=== PATIENT | female | born 1965 | race Caucasian/White ===

== ENCOUNTER 2019-03-14 08:53 | Outpatient (REF) | payer MEDICAID, SELFPAY ==
--- NOTE | 2019-03-14 08:45 | PAPFT_PTH ---
PATIENT: Lauren Mcgraw LOC: [facility] U#:[id number] AGE/SX: 53/F ROOM: RE03/14/[address]: ALEKSEY Gordon : 1965 BED: DIS: 03/14/2019 SPEC #: [id number] RECD: 03/14/19 12:48 STATUS: COCO REJanice #: [id number] ELIESER: 03/14/19 08:[address]: Carol Ortiz DEPT: [facility] Cytology RECD BY: Patricia Montaño ENTERED: 03/14/19 12:49 SP TYPE: PAPFT OTHR DR: Derek Lilly Tissues: 1 - CX/ENDOCX FOR PAP SMEARS Procedures: PAP THIN PREP/UVM Screening HPV DNA PROBE Comments: [id number]
== END 2019-03-14 09:13 ==
LOC: LBN 08:53
PROVIDERS: PCP Internal Medicine; Visit Provider Nurse Practitioner Family
DX: Z12.4 Encounter for screening for malignant neoplasm of cervix (principal); Z11.51 Encounter for screening for human papillomavirus (HPV)
CPT/HCPCS: 88142; 87624

== ENCOUNTER 2019-03-26 01:03 | Outpatient (CLI) | payer MEDICAID, SELFPAY ==
--- NOTE | 2019-03-26 07:30 | DI.MAMMO_ITS ---
SYMPTOMS/DIAGNOSIS: SCREENING MAMMOGRAMS: Mammograms were interpreted according to the usual protocol including computer analysis with CAD system, tomosynthesis and C view imaging. The breast tissue is of moderate radiodensity. There is no dominant mass. There are no suspicious calcifications and there has been no significant interval change when compared with the prior images. SUMMARY: No evidence of malignancy, category 1. Follow-up surveillance with annual screening mammography is recommended. Breast density category C. MQSA ASSESSMENT OF FINDINGS: Negative. Category 1. Patient will receive a letter notifying them of these results. Bi-RADS category C. The breasts are heterogeneously dense, which may obscure small masses.
== END 2019-03-26 01:23 ==
PROVIDERS: PCP Internal Medicine; Visit Provider Nurse Practitioner Family
DX: Z12.31 Encounter for screening mammogram for malignant neoplasm of breast (principal)
CPT/HCPCS: 77063; 77067

== ENCOUNTER 2020-05-20 03:12 | Outpatient (CLI) | payer MEDICAID, SELFPAY ==
--- NOTE | 2020-05-20 07:30 | DI.MAMMO_ITS ---
EXAM: MG MAMMO SCREENING CLINICAL HISTORY: screening TECHNIQUE: Mammograms were interpreted according to the usual protocol including computer analysis w [employer] CAD system, tomosynthesis and C-view imaging. COMPARISON: FINDINGS: The breasts are heterogeneously dense. No dominant mass or clumped microcalcification is identified in either breast. The current examination is compared with previous examinations including April 0422 January 2018 and there has been no gross interval change in appearance in comparison with the prior s tudies. IMPRESSION: No specific evidence of malignancy at this time. Routine screening examinations are suggested at ye aminah intervals due to the family history of breast carcinoma. Category: BI-RADS Cat 1 - Negative Breast Density - Category C - Heterogeneously dense
== END 2020-05-20 03:32 ==
PROVIDERS: PCP Internal Medicine; Visit Provider Nurse Practitioner Family
DX: Z12.31 Encounter for screening mammogram for malignant neoplasm of breast (principal); R92.2 Inconclusive mammogram; Z80.3 Family history of malignant neoplasm of breast
CPT/HCPCS: 77063; 77067

== ENCOUNTER 2020-09-12 13:59 | Emergency (ER) | payer MEDICAID, SELFPAY ==
[2020-09-12 14:05] VITALS: BP 132/86; PULSE 78; RESP 16; TEMP 36.7; O2SAT 99
--- NOTE | 2020-09-12 14:29 | ED.GENADUL_ITS ---
Discharge Plan Disposition Patient Disposition: HOME Condition: Improving Discharge Details Clinical Impression: Epigastric abdominal pain Primary Care Provider: Derek Lilly ED Provider: Janine Cuellar Home Meds and New Rx's Prescriptions: New sucralfate [Carafate] 1 gram tablet 1 gm PO QACHS Qty: 14 RF: 0 Continued estradiol-norethindrone acet [Activella] 1-0.5 mg tablet 1 tab PO DAILY Qty: 84 RF: 3 multivitamin [Daily Multi-Vitamin] 1 EACH tablet 1 ea PO DAILY RF: 0 aspirin [Aspirin Low-Strength] 81 MG tablet,chewable 81 mg PO DAILY RF: 0 omega-3 fatty acids-fish oil 1 EACH capsule 1 ea PO DAILY Qty: 2 RF: 0 amitriptyline 25 MG tablet 50 mg PO HS RF: 0 Discharge Instructions Instructions: Peptic Ulcer (ED), Gastritis (ED), Epigastric Pain (ED) Additional Instructions: Stop taking NSAIDs for your shoulder pain. Take Tylenol every 4 hours as needed and directed for pain. Take over the counter Prilosec once daily for the next 2 weeks. Take the carafate as directed. Avoid alcohol, caffeine, spicy foods, chocolate and peppermint as this may contribute to heartburn. You will receive a call from care management regarding a follow-up appointment with general surgery for further evaluation and for consideration for upper endoscopy if your symptoms do not improve or worsen. Follow up with your primary care doctor for an ultrasound of your thyroid for further evaluation of your thyroid nodule. Return immediately to the emergency department if you develop any worsening or new concerning symptoms. Referrals: Candis Mendieta MD [ [facility] STAFF PHYSICIAN] - Discharge Data Discharge Physician: Janine Cuellar Medical Decision Making 55-year-old female with a history of anxiety presents for sudden onset of sharp epigastric pain that started while standing in her kitchen today. EKG notes a rate of 80, sinus with no acute ST ischemic findings, nondiagnostic. She appears uncomfortable. Her vitals are within normal limits. Her lungs are clear. Her abdomen is mild to moderately tender in the epigastrium. She has been taking Motrin regularly for shoulder pain. Suspect likely PUD, gastritis, esophagitis. Also consider pancreatitis, cholelithiasis. Considering age and presentation, will obtain a cardiac work-up CTA chest and abdomen, give GI cocktail, Pepcid and morphine. Labs and imaging reviewed and unremarkable. Normal white blood cell count. Troponin negative. There is incidentally a 1.5 cm right lobe thyroid nodule. Patient reassessed and she feels much better. Discussed with patient that it is recommended she hold on NSAIDs at this time and treat her shoulder pain with Tylenol. She was advised to take a PPI for the next 2 weeks and given a dose of Carafate here as well as prescription for home. She was placed on surgery follow-up list for reevaluation. Imaging Data Radiologic Study: Radiologist's impression: CT Angiography Chest With Contrast Exam date and time: 09/12/2020 3:34 PM Age: 55 years old Clinical indication: Other: Epigastric pain; Abdominal pain; Acute TECHNIQUE: Imaging protocol: Computed tomographic angiography of the chest with intravenous contrast. 3D rendering (Not supervised by radiologist): MIP and/or 3D reconstructed images were created by the technologist. Contrast material: OMNIPAQUE 350; Contrast volume: 100 ml; Contrast route: INTRAVENOUS (IV); Other contrast: Catheter; COMPARISON: No relevant prior studies available. FINDINGS: Pulmonary arteries: There is no filling defect to suggest pulmonary embolism. There is no aortic dissection. Aorta: See Pulmonary arteries finding. Thyroid: There is a 1.5 cm hypodense nodule in the partially visualized right lobe of thyroid gland. Lungs: Unremarkable. No consolidation. No masses. Pleural space: There is no focal consolidation or pleural effusion. Heart: Heart is within normal limits in size. Lymph nodes: Unremarkable. No enlarged lymph nodes. Bones/joints: There are degenerative changes in the thoracic spine. There is no focal lytic or blastic lesion. Soft tissues: Unremarkable. IMPRESSION: 1. No pulmonary embolism or aortic dissection. 2. No acute pulmonary process. 3. 1.5 cm nodule in right lobe of the thyroid gland. Correlation with ultrasound might be considered. CT Angiography Abdomen and Pelvis With Contrast Exam date and time: 09/12/2020 3:34 PM Age: 55 years old Clinical indication: Other: Epigastric pain; Abdominal pain; Acute TECHNIQUE: Imaging protocol: Computed tomographic angiography of the abdomen and pelvis with intravenous contrast material. 3D rendering (Not supervised by radiologist): MIP and/or 3D reconstructed images were created by the technologist. Contrast material: OMNIPAQUE 350; Contrast volume: 100 ml; Contrast route: INTRAVENOUS (IV); Other contrast: Catheter; COMPARISON: No relevant prior studies available. FINDINGS: Aorta: No aortic aneurysm. No aortic dissection. Celiac trunk and mesenteric arteries: No occlusion or significant stenosis. Renal arteries: No occlusion or significant stenosis. Right iliac arteries: No occlusion or significant stenosis. Left iliac arteries: No occlusion or significant stenosis. Liver: No mass. Gallbladder and bile ducts: Unremarkable. No calcified stones. No ductal dilation. Pancreas: Unremarkable. No mass. No ductal dilation. Spleen: Unremarkable. No splenomegaly. Adrenals: Unremarkable. No mass. Kidneys and ureters: There is a cortical cyst in the right kidney. Stomach and bowel: There is mild stool volume in the colon and rectum. Appendix is normal (image 93 series 4). Stomach is nondistended, limiting the evaluation of mucosal thickening. Appendix: See Stomach and bowel finding. Intraperitoneal space: Unremarkable. No free air. No significant fluid collection. Lymph nodes: Unremarkable. No enlarged lymph nodes. Urinary bladder: Unremarkable. No mass. Reproductive: Uterus is enhancing intravenously which is non-specific. There are surgical clips noted in the bilateral adnexa. In Bones/joints: There are degenerative changes in the lumbar spine, most pronounced at L4-L5 and L5-S1. Soft tissues: There is a small fat containing umbilical hernia. IMPRESSION: 1. No acute intra-abdominal abnormality. 2. Normal appendix. No definite CT abnormality to suggest pancreatitis or cholecystitis. Lab Data Lab results reviewed: Yes I reviewed the patient's lab results. ECG Data Attestation: I personally reviewed and interpreted this ECG (s) as follows: Interpretation: HPI General Mode of arrival: ambulatory . Date/Time Provider Initiated Documentation: 09/12/20 14:11 . Limitations to Documentation: no limitations . Information obtained by: patient . HPI Narrative: Patient is a 55-year-old female who presents with sudden sharp and stabbing epigastric pain that started while standing in her kitchen today. Patient states she had toast and coffee 2 hours prior to onset of her symptoms. She states the pain is constant and currently 8/10. She has not taken medication for symptoms. She denies any known aggravating or alleviating factors. She denies any radiation to her chest or back. She had a normal bowel movement this morning without rectal bleeding. She states she has been taking 600 mg of ibuprofen 3 times daily for the past 1 to 2 weeks for right shoulder pain. She denies any fever, cough, chest pain, shortness of breath, nausea, vomiting, diarrhea, urinary symptoms. She denies any recent travel, recent known sick contacts or recent known exposure to coronavirus. Related Data Home Medications Medication Instructions Recorded Confirmed aspirin [Aspirin Low-Strength] 81 mg PO DAILY tab-cap 08/13/13 09/12/20 multivitamin [Daily Multi-Vitamin] 1 ea PO DAILY 08/13/13 09/12/20 omega-3 fatty acids-fish oil 1 ea PO DAILY #2 08/13/13 09/12/20 amitriptyline 50 mg PO HS tab-cap 08/25/14 09/12/20 estradiol-norethindrone acet 1 1 tab PO DAILY #84 tab 04/24/20 09/12/20 mg-0.5 mg tablet sucralfate [Carafate] 1 gm PO QACHS #14 tab 09/12/20 Previous Rx's Medication Instructions Recorded estradiol-norethindrone acet 1 1 tab PO DAILY #84 tab 04/24/20 mg-0.5 mg tablet sucralfate [Carafate] 1 gm PO QACHS #14 tab 09/12/20 Allergies Allergy/AdvReac Type Severity Reaction Status Date / Time sulfamethoxazole Allergy Intermediate RASH Verified 09/12/20 14:09 [From Bactrim] trimethoprim [From Bactrim] Allergy Intermediate RASH Verified 09/12/20 14:09 General Stated Complaint: Abd Prob GEGE: 3 Review of Systems All systems reviewed & are unremarkable except as noted in HPI and below Constitutional Constitutional: Reports as per HPI, Denies chills and Denies fever(s) Eyes Eyes: Denies blurry vision ENT Ears, Nose, Mouth, and Throat: Denies dizziness, Denies sore throat and Denies throat swelling Cardiovascular Cardiovascular: Denies chest pain and Denies dyspnea Respiratory Respiratory: Denies cough and Denies dyspnea Gastrointestinal Gastrointestinal: Reports abdominal pain, Denies diarrhea and Denies vomiting Genitourinary Genitourinary: Denies hematuria and Denies dysuria Musculoskeletal Musculoskeletal: Denies back pain and Denies numbness Integumentary/Breasts Skin/Breast: Denies lesions and Denies rash Neurologic Neurologic: Denies dizziness, Denies localized weakness and Denies numbness Allergic/Immunologic Allergic/Immunologic: Denies throat swelling [facility] Medical History (Updated 09/12/20 @ 18:02 by Janine Cuellar DO) Anxiety (08/13/13) Chronic neck pain (08/13/13) Surgical History (Updated 08/01/18 @ 14:34 by [employer] [place]) Cautery of R neck nerves 2012 x 2 procedures Ligation of fallopian tube 1997 Family History Sister Manda-Danlos syndrome Sister Manda-Danlos syndrome Mother Hyperlipidemia Sister Manda-Danlos syndrome Other Diabetes Personal history of malignant neoplasm Social History Smoking/Tobacco Use Status: Former Tobacco Use Smoking risk assessment performed?: Yes Alcohol Intake: current Alcohol Intake frequency: 0-2 drinks per day Alcohol type: wine Drug use: Never Substance use type: does not use Do you feel safe at home: No Do you feel safe in your relationship?: No History History 4 Para 2 Hx # Term Pregnancies Multiple births Hx # Pregnancies Ectopic pregnancies AB induced Hx Number of Living Children AB spontaneous Exam Const General: cooperative, healthy appearing and uncomfortable Orientation: alert, awake and oriented x3 HENMT Head: normal to inspection Face and sinus: normal facial exam Eyes General: appearance normal, both eyes and all related structures Pupils: PERRL EOM: EOM intact bilaterally Neck Neck: normal visual inspection and No submandibular swelling Lymphatic: no lymphadenopathy noted Chest Chest: normal inspection of the chest and no tenderness Resp Effort & Inspection: normal respiratory effort and able to speak in complete sentences Auscultation: clear to auscultation bilaterally Cardio Rate: regular rate Rhythm: regular rhythm GI Inspection: normal to inspection Palpation: soft, not firm, not rigid and tender in the epigastrum Auscultation: hypoactive bowel sounds Skin General skin exam: no rashes or lesions noted Neuro General: patient alert, patient awake and patient oriented x3 Cognition: normal cognition Speech: speech normal Motor: muscle tone normal throughout Sensory Exam: no sensory deficits noted Extrem General: normal to inspection, full ROM, capillary refill normal, no calf tenderness bilaterally and no edema Psych Appearance: grossly normal Mental Status: mental status grossly normal Speech and Movement: speech and movement normal Affect: normal affect Course Vital Signs Vital signs: Vital Signs Temperature 98.1 F 09/12/20 14:05 Pulse 78 09/12/20 14:05 Respiratory Rate 16 09/12/20 14:05 Blood Pressure 132/86 09/12/20 14:05 Pulse Oximetry 99 09/12/20 14:05 Temperature 98.1 F 09/12/20 14:05 Temperature Source Skin 09/12/20 14:05 Pulse 78 09/12/20 14:05 Respiratory Rate 16 09/12/20 14:05 Respiratory Effort 09/12/20 14:09 Blood Pressure 132/86 09/12/20 14:05 Blood Pressure Position Sitting 09/12/20 14:05 Pulse Oximetry 99 09/12/20 14:05 Oxygen Delivery Method Room Air 09/12/20 14:05 Oxygen Flow Rate 0 09/12/20 14:05 Pain Level 8 09/12/20 14:05
[2020-09-12 14:38] LABS: Abs Immature Grans 0.02 10^3/uL (0.0-0.06); Absolute Basophil Count 0.04 10^3/uL (0.0-0.2); Absolute Eosinophil Count 0.35 10^3/uL (0.0-0.7); Absolute Lymphocyte Count 2.03 10^3/uL (1.2-3.4); Absolute Monocyte Count 0.64 10^3/uL (0.1-0.8); Absolute Neutrophil Count 5.84 10^3/uL (1.2-6.7); Basophils % 0.4; Eosinophils % 3.9; HCT 39.3 % (36.0-46.0); Immature Grans % 0.2; Lymphocytes % 22.8; MCH 31.5 pg (27.0-33.0); MCHC 33.1 % (32.0-36.0); MCV 95.2 fL (80-95); Monocytes % 7.2; Neutrophils % 65.5; Nucleated RBC 0 %; Platelet Count 289 10^3/uL (130-400); RBC 4.13 10^6/uL (3.93-5.22); RDW 12.6 % (11.7-14.6); RDW-SD 43.7 fL; WBC 8.92 10^3/uL (4.4-10.8)
[2020-09-12 14:54] LABS: ALT 22 U/L (14-59); AST 16 U/L (15-37); Albumin 4.1 g/dL (3.4-5.0); Alkaline Phosphatase 55 U/L (46-116); Anion Gap 6.9 mmol/L (3-11); BUN 11 mg/dL (7-18); Bilirubin, Total 0.2 mg/dL (0.2-1.0); CO2 28.1 mmol/L (21.0-32.0); CREATININE 0.88 mg/dL (0.55-1.02); Calcium 9.3 mg/dL (8.5-10.1); Chloride 105 mmol/L (98-107); Glucose 94 mg/dL (74-106); Lipase 148 U/L (73-393); Sodium 140 mmol/L (136-145); Total Protein 6.7 g/dL (6.4-8.2)
[2020-09-12 14:56] LABS: Troponin I < 0.05 ng/mL (<0.06)
[2020-09-12 15:02] LABS: Bilirubin Negative (Negative); Blood Negative (Negative); Clarity Clear (Clear); Glucose Negative (Negative); Ketones Negative (Negative); Leukocyte Esterase Negative (Negative); Nitrite Negative (Negative); Urobilinogen 0.2 EU/dL (Up TO 0.2); pH 7.5 (5-8)
--- NOTE | 2020-09-12 15:30 | DI.CT_ITS ---
EXAM: CT THORAX ABD/PEL CTA CLINICAL HISTORY: epigastric abd pain, sudden. TECHNIQUE: Imaging Protocol: Axial computed tomography images of the with coronal and sagittal refo rmatted images were created and reviewed CONTRAST MATERIAL: Intravenous: Omnipaque 350 Contrast volume:100 cc contrast route:IV - Oral: No COMPARISON: No exams were available for comparison FINDINGS: CHEST: Pulmonary arteries: No obvious intraluminal filling defects to suggest the presence of acute pulmonar y emboli. Lungs: No evidence of infiltrates nor pleural effusions. No evidence of pulmonary infarction. No si gnificant focal findings in trachea and mainstem bronchi. Mediastinum: No hilar nor mediastinal adenopathy. No obvious axillary adenopathy. Right thyroid lob e partially included contains prominent nodule. Cardiac: Heart size is normal. There is no pericardial effusion. The diameter of the ascending thor acic aorta is prominent, measuring 4 centimetres. There is no a aortic dissection evident. Osseous: No fractures identified. No lytic osseous lesions seen. ABDOMEN: There is no ascites Abdominal aorta: Intact. No evidence of aortic aneurysm. No significant stenosis at the origin of t he celiac and SMA arteries nor of the renal arteries. Inferior mesenteric artery is patent. No evid ence of significant stenosis within the abdominal aorta and aortic bifurcation nor within the aortoil iac segments. Both common femoral arteries are also patent. Abdomen: No focal hepatic findings no dilatation of intrahepatic ducts. There is no obvious gallblad chasity pathology. The CBD is not dilated. The pancreas appears unremarkable. The spleen is not enlarg ed. There are no significant adrenal masses nor significant focal findings in the left kidney. Ther e is a small 12 millimeter cyst in the right kidney. No calculi nor solid renal masses. No hydronep hrosis. No perinephric fluid. The abdominal aorta is not enlarged. There is no flqszqguwmqcele-plcn-bsduqi adenopathy. There is no evidence of anterior abdominal wall hernia, bowel obstruction, nor free air. PELVIS: The uterus and adnexal regions appear unremarkable. Tubal ligation clips noted both adnexal regions. Urinary bladder appears unremarkable. No fluid in the cul-de-sac. There is no intrapelvic nor ing uinal adenopathy evident. There is no evidence of acute appendicitis or diverticulitis. There are n o pelvic fractures. No lytic osseous lesions. IMPRESSION: 1. No evidence of acute pulmonary embolism nor evidence of pulmonary infarction or pleural effusions. 2. No evidence of aortic dissection. No pericardial effusion. 3. No acute intra-abdominal pathology. 4. Small benign cyst noted in the right kidney. No other significant renal findings. No hydronephro sis. RADIATION DOSE DELIVERED: LINK-TO-SR Total DLP DATA REPOSITORY: All CT scans at this facility are submitted to the National Radiology Data Registry (NRDR) Dose Index Registry (DIR) with the [employer] (ACR). RADIATION OPTIMIZATION: All CT scans at this facility use at least one of these dose optimization te chniques: automated exposure control; mA and/or kV adjustment per patient size (includes targeted exa ms where dose is matched to clinical indication); or iterative reconstruction.
--- NOTE | 2020-09-12 15:30 | RT.EKG_ITS ---
APPROVED REPORT Exam: Resting ECG Patient Location: E HR:80 bpm ECG Measurements Heart Rate 80 AXIS UT 147 P 20 QRSd 115 QRS 97 QT 405 T 45 QTc 446 Conclusion Sinus rhythm...normal P axis, V-rate 60- 99 Ventricular premature complex...V complex w/ short R-R interval Nonspecific intraventricular conduction delay...QRSd >115mS, not LBBB/RBBB I have reviewed and interpreted ECG and agree with software generated interpretation.
[2020-09-12] MEDS: Normal Saline 1,000 ML 1000 ML IV (15:45)
[2020-09-12] MEDS: Omnipaque 350 MG/ML 100 ML BTL IJ (16:10)
[2020-09-12] MEDS: Normal Saline - Diluent 50 ML VIAL IV (16:10)
[2020-09-12] MEDS: FAMOTIDINE 20 MG/50 ML BAG 200 MG IVPB (16:10)
[2020-09-12] MEDS: Normal Saline Flush 10 ML SYR IVP (16:10)
--- NOTE | 2020-09-12 17:18 | DI.VRAD_ITS ---
PROCEDURE INFORMATION: Exam: CT Angiography Chest With Contrast Exam date and time: 09/12/2020 3:34 PM Age: 55 years old Clinical indication: Other: Epigastric pain; Abdominal pain; Acute TECHNIQUE: Imaging protocol: Computed tomographic angiography of the chest with intravenous contrast. 3D rendering (Not supervised by radiologist): MIP and/or 3D reconstructed images were created by the technologist. Contrast material: OMNIPAQUE 350; Contrast volume: 100 ml; Contrast route: INTRAVENOUS (IV); Other contrast: Catheter; COMPARISON: No relevant prior studies available. FINDINGS: Pulmonary arteries: There is no filling defect to suggest pulmonary embolism. There is no aortic dissection. Aorta: See Pulmonary arteries finding. Thyroid: There is a 1.5 cm hypodense nodule in the partially visualized right lobe of thyroid gland. Lungs: Unremarkable. No consolidation. No masses. Pleural space: There is no focal consolidation or pleural effusion. Heart: Heart is within normal limits in size. Lymph nodes: Unremarkable. No enlarged lymph nodes. Bones/joints: There are degenerative changes in the thoracic spine. There is no focal lytic or blastic lesion. Soft tissues: Unremarkable. IMPRESSION: 1. No pulmonary embolism or aortic dissection. 2. No acute pulmonary process. 3. 1.5 cm nodule in right lobe of the thyroid gland. Correlation with ultrasound might be considered. PROCEDURE INFORMATION: Exam: CT Angiography Abdomen and Pelvis With Contrast Exam date and time: 09/12/2020 3:34 PM Age: 55 years old Clinical indication: Other: Epigastric pain; Abdominal pain; Acute TECHNIQUE: Imaging protocol: Computed tomographic angiography of the abdomen and pelvis with intravenous contrast material. 3D rendering (Not supervised by radiologist): MIP and/or 3D reconstructed images were created by the technologist. Contrast material: OMNIPAQUE 350; Contrast volume: 100 ml; Contrast route: INTRAVENOUS (IV); Other contrast: Catheter; COMPARISON: No relevant prior studies available. FINDINGS: Aorta: No aortic aneurysm. No aortic dissection. Celiac trunk and mesenteric arteries: No occlusion or significant stenosis. Renal arteries: No occlusion or significant stenosis. Right iliac arteries: No occlusion or significant stenosis. Left iliac arteries: No occlusion or significant stenosis. Liver: No mass. Gallbladder and bile ducts: Unremarkable. No calcified stones. No ductal dilation. Pancreas: Unremarkable. No mass. No ductal dilation. Spleen: Unremarkable. No splenomegaly. Adrenals: Unremarkable. No mass. Kidneys and ureters: There is a cortical cyst in the right kidney. Stomach and bowel: There is mild stool volume in the colon and rectum. Appendix is normal (image 93 series 4). Stomach is nondistended, limiting the evaluation of mucosal thickening. Appendix: See Stomach and bowel finding. Intraperitoneal space: Unremarkable. No free air. No significant fluid collection. Lymph nodes: Unremarkable. No enlarged lymph nodes. Urinary bladder: Unremarkable. No mass. Reproductive: Uterus is enhancing intravenously which is non-specific. There are surgical clips noted in the bilateral adnexa. In Bones/joints: There are degenerative changes in the lumbar spine, most pronounced at L4-L5 and L5-S1. Soft tissues: There is a small fat containing umbilical hernia. IMPRESSION: 1. No acute intra-abdominal abnormality. 2. Normal appendix. No definite CT abnormality to suggest pancreatitis or cholecystitis. Dictated and Authenticated by: Kalia Stokes MD. Ordering:RENE Mehta MD
[2020-09-12] MEDS: Sucralfate 1 GM TAB (17:50)
[2020-09-12 18:20] VITALS: BP 116/72; PULSE 69; RESP 16; TEMP 36.7; O2SAT 98
--- NOTE | 2020-09-13 07:35 | NUR.NOTE ---
Nursing Note: Referral faxed to [facility] for follow up. Nettie Cisneros
== END 2020-09-12 18:30 | disposition home or self-care (01) ==
PROVIDERS: Emergency Provider Physician Assistant; PCP Internal Medicine
DX: R10.13 Epigastric pain (principal); F41.9 Anxiety disorder, unspecified; Z79.1 Long term (current) use of non-steroidal anti-inflammatories (NSAID)
CPT/HCPCS: 36415; 71275; 74177; 80053; 83690; 93005; 96361; 96365; 96375; 99285; 81003; 83735; 84484; 85025; 93010; J3490

== ENCOUNTER 2020-09-14 21:22 | Outpatient (REF) | payer MEDICAID, SELFPAY ==
[2020-09-14 21:36] LABS: FREE T4 0.82 ng/dL (0.76-1.46); TSH 2.68 uIU/mL (0.36-3.74)
[2020-09-15 17:02] LABS: T3,Free 2.5 pg/mL (2.8-5.3)
== END 2020-09-14 21:42 ==
LOC: NCHCN 21:22
PROVIDERS: PCP Internal Medicine; Visit Provider Nurse Practitioner Family
DX: E04.1 Nontoxic single thyroid nodule (principal)
CPT/HCPCS: 84439; 84443; 84481

== ENCOUNTER 2020-09-22 02:27 | Outpatient (CLI) | payer MEDICAID, SELFPAY ==
--- NOTE | 2020-09-22 | DI.US_ITS ---
EXAM: US THYROID CLINICAL HISTORY: RT THYROID NODULE, E04.1 TECHNIQUE: Ultrasound performed using standard protocol. COMPARISON: US LEFT BREAST ULTRASOUND from 02/28/2014 FINDINGS: Thyroid ultrasound was performed according to the usual protocol. Right thyroid lobe measures 50 x 1 7 x 18 millimeters. Left thyroid lobe measures 30 x 10 x 13 millimeters. Isthmus is about 3 millime ters in thickness. Thyroid parenchyma is predominantly homogeneous. There is a dominant 25 millimeter in diameter nodul e with spondylo form appearance which is wider than tall and has smooth margins and no echogenic foci in the lower pole of the right thyroid lobe. This is TI-RADS level TR 1, no follow-up recommended. A couple of subcentimeter nodules are also seen in the right thyroid lobe which are smooth walled iso echoic with no calcifications, no follow up recommended for these small lesions. IMPRESSION: No suspicious lesion identified, no follow up recommended. DATA REPOSITORY:
== END 2020-09-22 02:47 ==
PROVIDERS: PCP Internal Medicine; Visit Provider Nurse Practitioner Family
DX: E04.1 Nontoxic single thyroid nodule (principal)
CPT/HCPCS: 76536

== ENCOUNTER 2020-10-02 03:58 | Outpatient (CLI) | payer MEDICAID, SELFPAY ==
--- NOTE | 2020-10-02 08:05 | DI.RAD_ITS ---
EXAM: XR SHOULDER RT COMPLETE 2+V CLINICAL HISTORY: RT SHOULDER PAIN,[id number]. TECHNIQUE: 2D digital imaging was performed. COMPARISON: No exams were available for comparison FINDINGS: BONES: No acute fracture is present. No bony destructive lesion is seen. JOINTS: No dislocation present. Degenerative changes are seen at the acromioclavicular joint. SOFT TISSUE: Normal. IMPRESSION: Mild degenerative changes of the AC joint. DATA REPOSITORY: RADIATION DOSE DELIVERED:
== END 2020-10-02 04:18 ==
PROVIDERS: PCP Internal Medicine; Visit Provider Family Medicine
DX: M19.011 Primary osteoarthritis, right shoulder (principal)
CPT/HCPCS: 73030

== ENCOUNTER 2020-11-05 10:03 | Outpatient (CLI) | payer MEDICAID, SELFPAY ==
--- NOTE | 2020-11-05 09:15 | DI.RAD_ITS ---
EXAM: XR SHOULDER RT COMPLETE 2+V CLINICAL HISTORY: right shoulder injury. TECHNIQUE: 2D digital imaging was performed. COMPARISON: CR XR SHOULDER RT COMPLETE 2+V from 10/02/2020 FINDINGS: BONES: No acute fracture is present. No bony destructive lesion is seen. JOINTS: No dislocation present. Mild degenerative changes are seen at the acromioclavicular joint. T he glenohumeral joint is unremarkable. SOFT TISSUE: Normal. IMPRESSION: Mild degenerative changes of the right AC joint. DATA REPOSITORY: RADIATION DOSE DELIVERED:
== END 2020-11-05 10:23 ==
PROVIDERS: PCP Internal Medicine; Referring Provider Internal Medicine; Visit Provider Student in an Organized Health Care Education/Training Program
DX: M19.011 Primary osteoarthritis, right shoulder (principal)
CPT/HCPCS: 73030

== ENCOUNTER 2021-06-08 03:14 | Outpatient (CLI) | payer MEDICAID, SELFPAY ==
--- NOTE | 2021-06-08 08:45 | DI.MAMMO_ITS ---
Exam(s) MAMMO SCREENING EXAM: MAMMO SCREENING CLINICAL HISTORY: screening Z12.39 TECHNIQUE: Mammograms were interpreted according to the usual protocol including computer analysis w [employer] CAD system, tomosynthesis and C-view imaging. COMPARISON: 2010 through 2019 FINDINGS: The breasts are composed of heterogeneously dense fibroglandular densities, Breast Density category C . No suspicious masses or suspicious microcalcifications are seen. No skin thickening or abnormal axillary lymph nodes are seen. There has been no significant change from prior exams. IMPRESSION: BI-RADS Category 1, Negative mammogram. Yearly screening mammography is recommended. Breast Density Category C, heterogeneously Dense. The mammogram demonstrates the patient's breast tissue is dense. Dense breast tissue is very common a nd is not abnormal but dense breast tissue can make it harder to find cancer on a mammogram. Also, de nse breast tissue may increase breast cancer risk. This information about the result of the mammogram report was provided to the patient to raise their awareness. Use this report when you speak with the patient about their risks for breast cancer, which includes their family history. At that time, you may recommend additional screening tests (Ultrasound or MRI) as they might be useful based on their r isk. A negative radiographic report should not delay biopsy if a dominant or clinically suspicious mass is present. Up to ten percent of cancers are not identified on mammography. A negative report may reinforce clinical impression. Adenosis and dense breasts may obscure an underlying neoplasm. False positive reports average 6 to 10%.
== END 2021-06-08 03:34 ==
PROVIDERS: PCP Internal Medicine; Visit Provider Nurse Practitioner Family
DX: Z12.31 Encounter for screening mammogram for malignant neoplasm of breast (principal)
CPT/HCPCS: 77063; 77067

== ENCOUNTER 2021-07-23 03:47 | Outpatient (CLI) | payer MEDICAID, SELFPAY ==
--- NOTE | 2021-07-23 15:32 | DI.MRI_ITS ---
Exam(s) MR UPPER JOINT RT WO CLINICAL HISTORY: PAIN,IMPINGEMENT SYNDROME,SLAP LESION,TENDINITIS,M75.41,M75.21,M25.511. TECHNIQUE: Multiplanar multisequence MRI was performed. COMPARISON: None FINDINGS: MR examination of the shoulder was performed according to the usual protocol. There is a moderate-sized effusion of the glenohumeral joint. Bones and labrum: There is mild hypertrophic change the. Some degenerative spurring the glenoid appe ars to be present as well. There are few small subchondral cysts the humeral head. There is an apparent labral tear in its anterior and superior portions. Labrum is not ideally visual ized due to motion artifact on multiple pulse sequences. Rotator cuff: There is a full-thickness retracted rotator cuff tear which involves the posterior 3/4 of the supraspinatus tendon as well as some small anterior portions of infraspinatus tendon. There is retraction by about 4 cm and the width of the tendon gap is about 3.3 cm. There is muscular atrop hy the supraspinatus estimated at about 50 percent. No other significant muscular atrophy seen. The subscapularis tendon appears fairly well maintained with some tendinosis of the distal portion of th e tendon. There is tendinosis of the on torn portions of distal infraspinatus tendon.. Rotator interval is not well demonstrated on the images obtained. There does appear to be a signific ant rotator interval tear. Biceps tendon and anchor: Biceps tendon is normally positioned in the bicipital groove. There may be some fraying of the biceps anchor which shows abnormal signal. No full-thickness or retracted tear is seen. IMPRESSION: Large rotator cuff retracted tear involving predominant portions of the supraspinatus tendon and ante rior portions of infraspinatus tendon. Labral tear/deficiency, particularly in anterior superior por tion of the labrum. Rotator interval tear noted as well. DATA REPOSITORY:
== END 2021-07-23 04:07 ==
PROVIDERS: PCP Internal Medicine; Visit Provider Student in an Organized Health Care Education/Training Program
DX: M25.511 Pain in right shoulder (principal); S43.431A Superior glenoid labrum lesion of right shoulder, initial encounter; S46.011A Strain of muscle(s) and tendon(s) of the rotator cuff of right shoulder, initial encounter
CPT/HCPCS: 73221

== ENCOUNTER 2021-08-09 02:00 | Outpatient (CLI) | payer MEDICAID, SELFPAY ==
[2021-08-09 11:16] LABS: Source Nasal/Nares
[2021-08-09 14:48] LABS: COVID-19 PCR Negative (Negative)
== END 2021-08-09 02:01 | disposition home or self-care (01) ==
LOC: LBO 02:00
PROVIDERS: PCP Internal Medicine; Visit Provider Student in an Organized Health Care Education/Training Program
DX: Z20.822 Contact with and (suspected) exposure to COVID-19 (principal); Z01.818 Encounter for other preprocedural examination
CPT/HCPCS: 87635

== ENCOUNTER 2021-08-11 12:21 | Day surgery (SDC) | payer MEDICAID, SELFPAY ==
--- NOTE | 2021-08-11 10:41 | PDOC.DSDIS_ITS ---
Discharge Plan Disposition Patient Disposition: HOME Condition: Good Discharge Details Reason For Visit: Right RTC/biceps tendinitis; impingement; SLAP Attending Provider: Levi Bajwa Primary Care Provider: Derek Lilly [place] Meds and New Rx's Prescriptions: New acetaminophen 500 mg tablet 500 mg PO Q6H PRN (Reason: pain) Qty: 60 RF: 2 ibuprofen 600 mg tablet 600 mg PO TID PRN (Reason: pain) Qty: 60 RF: 0 oxycodone 5 mg tablet 5 mg PO Q6H PRN (Reason: severe post-operative pain) Qty: 18 RF: 0 Continued estradiol-norethindrone acet [Activella] 1-0.5 mg tablet 1 tab PO DAILY Qty: 84 RF: 3 multivitamin [Daily Multi-Vitamin] 1 EACH tablet 1 ea PO DAILY RF: 0 aspirin [Aspirin Low-Strength] 81 MG tablet,chewable 81 mg PO DAILY RF: 0 omega-3 fatty acids-fish oil 1 EACH capsule 1 ea PO DAILY Qty: 2 RF: 0 amitriptyline 25 MG tablet 50 mg PO HS RF: 0 Discharge Instructions Referrals: Levi Bajwa MD [ [facility] STAFF PHYSICIAN] - Equipment/Supplies: Sling Activity:: Activity as Tolerated Remove Dressings/Wound Care:: Do Not Remove Shower/Bathe:: Cover Diet:: As Tolerated Discharge Orders Discharge Orders: Discharge Order (Routine); Ordered 08/11/21 Ordered By: Lara Cooper DS: Diagnosis Discharge Diagnosis (1) Right rotator cuff tendinitis: Status: Acute (2) Impingement syndrome of right shoulder: Status: Acute (3) SLAP lesion of right shoulder: Status: Acute (4) Tendinitis of long head of biceps brachii of right shoulder: Status: Acute
[2021-08-11 12:45] VITALS: BP 127/81; PULSE 66; RESP 16; TEMP 36.7; O2SAT 98
--- NOTE | 2021-08-11 12:45 | W.ANESPRE ---
General Info Date of Service Date Performed: 08/11/21 Height: 5 ft 7 in Weight: 67.132 kg Body Mass Index (BMI): 23.1 Surgical Procedure: Operation Date: 08/11/21 15:10 Proposed Procedures Side Surgeon p SHOULDER ARTHROSCOPIC DEBRIDEMENT Right Levi Bajwa MD s Shoulder Bicep Tenodesis Right Levi Bajwa MD Meds Allergies and Home Medications Allergies Allergy/AdvReac Type Severity Reaction Status Date / Time sulfamethoxazole Allergy Intermediate RASH Verified 08/10/21 14:35 [From Bactrim] trimethoprim [From Bactrim] Allergy Intermediate RASH Verified 08/10/21 14:35 Home Medication Medication Instructions Recorded aspirin [Aspirin Low-Strength] 81 mg PO DAILY tab-cap 08/13/13 multivitamin [Daily Multi-Vitamin] 1 ea PO DAILY 08/13/13 omega-3 fatty acids-fish oil 1 ea PO DAILY #2 08/13/13 amitriptyline 50 mg PO HS tab-cap 08/25/14 estradiol-norethindrone acet 1 1 tab PO DAILY #84 tab 05/17/21 mg-0.5 mg tablet acetaminophen 500 mg PO Q6H PRN #60 tab 08/11/21 ibuprofen 600 mg PO TID PRN #60 tab 08/11/21 oxycodone 5 mg PO Q6H PRN #18 tab 08/11/21 Current Visit Medications: Current Medications Generic Name Dose Route Start Last Admin Trade Name Freq PRN Reason Stop Dose Admin Acetaminophen 650 mg 08/11/21 10:34 Acetaminophen 325 Mg Tab PO Q4H PRN PRN Hydrocodone Bitart/Acetaminophen 0 tab 08/11/21 10:34 Hydrocodone 5/Acetaminophen 325 Tab PO Q3H PRN PRN Pain Ringer's Solution 1,000 mls @ 80 mls/hr 08/11/21 06:00 IV 09/09/21 23:59 INFUSION ELIEL Cefazolin Sodium/Dextrose 2 gm in 50 mls @ 100 mls/hr 08/11/21 06:00 Ancef Duplex IVPB 09/09/21 23:59 PREOP ELIEL IV Miscellaneous Supplies 1 each 08/11/21 06:00 Iv Access IV 09/09/21 23:59 DIRECTED ELIEL Sodium Chloride 0 ml 08/11/21 06:00 Normal Saline Flush 10 Ml Syr IV 09/09/21 23:59 PRN PRN Sodium Chloride 0 ml 08/11/21 06:00 Normal Saline 10 Ml Vial IJ 09/09/21 23:59 DIRECTED PRN Sterile Water 0 ml 08/11/21 06:00 Water,Injection,Sterile 10 Ml Vial IJ 09/09/21 23:59 DIRECTED PRN PFSH Active Problems Active Problems: Problem Status Onset Code Right rotator cuff tendinitis M75.81 Impingement syndrome of right shoulder M75.41 SLAP lesion of right shoulder S43.431A Tendinitis of long head of biceps brachii of right shoulder M75.21 Right shoulder pain M25.511 Anxiety 08/13/13 F41.9 Chronic neck pain 08/13/13 M54.2, G89.29 Medical History Medical History Anxiety (08/13/13) Chronic neck pain (08/13/13) Surgical History Surgical History Cautery of R neck nerves 2012 x 2 procedures Ligation of fallopian tube 1997 Tobacco Smoking/Tobacco Use Status: Former Tobacco Use Alcohol Alcohol Intake: current Alcohol intake frequency: 0-2 drinks per day Alcohol type: wine Substance Use Substance use: Never Substance use type: does not use Prental History History 4 Para 2 Hx # Term Pregnancies Multiple births Hx # Pregnancies Ectopic pregnancies AB induced Hx Number of Living Children AB spontaneous Vital Signs and Lab Results Lab Results Blood Type / Crossmatch: No Data to Display Complete Blood Count: No Data to Display Complete Metabolic Panel: No Data to Display Liver Function Panel: No Data to Display Coagulation Panel: No Data to Display Cardiac Panel: No Data to Display Arterial Blood Gas: No Data to Display Venous Blood Gas: No Data to Display Pancreas Panel: No Data to Display Thyroid Panel: No Data to Display Infectious Disease: Coronavirus (COVID-19)(PCR) Negative (Negative) 08/09/21 09:31 08/09/21 Coronavirus 2019 Source Nasal/Nares 08/09/21 09:31 08/09/21 Blood Cultures: No Data to Display Toxicology Panel: No Data to Display Imaging and Studies Imaging and Studies EKG Summary: 09/12/2020: Exam: Resting ECG Patient Location: E HR:80 bpm ECG Measurements Heart Rate 80 AXIS ID 147 P 20 QRSd 115 QRS 97 QT 405 T45 QTc 446 Conclusion Sinus rhythm...normal P axis, V-rate 60- 99 Ventricular premature complex...V complex w/ short R-R interval Nonspecific intraventricular conduction delay...QRSd >115mS, not LBBB/RBBB I have reviewed and interpreted ECG and agree with software generated interpretation. Anesthesia Assessment and Plan Anesthesia History Personal History: No History of Anesthesia Complications Family History: No Family History of Anesthesia Complications Exercise Tolerance Exercise Tolerance: Metabolic Equivalents>4 Pertinent Negatives Pertinent Negatives: No Symptoms of GERD, No Major Cardiovascular Symptoms or Complaints and No Major Pulmonary Symptoms or Complaints Cardiac & Pulmonary Exam Cardiac Exam: Normal S1/S2 Heart Sounds Pulmonary Exam: Clear Bilateral Breath Sounds Airway Exam Known Difficult Airway: No ASA Classification ASA Score: ASA 2 Emergency Case?: No NPO Status NPO Status: NPO Clears >2 hours, Solids >8 hours Anesthesia Plan Resuscitation Status: Full Code Anesthesia Technique: General Anesthesia Airway Planned: Endotracheal Tube Pain Management: Surgeon and patient request nerve block Monitors Used: Standard Monitors
--- NOTE | 2021-08-11 14:24 | PDOC.ANES ---
Date of service: 08/11/21 Time of Service: 13:10 Anesthesia Note Report Anesthesia Note: Anesthesia was alerted to patient's past medical history of prolonged emergence from anesthesia. Upon further discussion of past anesthetic experiences, patient noted to have malignant hyperthermia susceptibility secondary to family hisotry. Patient was unable to obtain specific details regarding other family member's history. Dr. Bajwa was informed that it would be prudent to treat the patient as M.H. susceptible and reschedule the surgery as first case of the day and allow for both a potentially prolonged time in PACU and MH preparation of the anesthesia workstation. Patient verbalizes understanding and also states she's potentially interested in getting tested for M.H.
== END 2021-08-11 12:22 | disposition home or self-care (01) ==
LOC: SUR 12:22
PROVIDERS: PCP Internal Medicine; Visit Provider Student in an Organized Health Care Education/Training Program
PROC: (CPT 29805; principal; 2021-08-11 15:00)
PROC: (CPT 23430; 2021-08-11 15:00)
DX: M75.41 Impingement syndrome of right shoulder (principal); Z53.09 Procedure and treatment not carried out because of other contraindication
CPT/HCPCS: J1100; J2001; J2250; J2405; J2704

== ENCOUNTER 2021-08-16 02:29 | Outpatient (CLI) | payer MEDICAID, SELFPAY ==
[2021-08-16 11:15] LABS: Source Nasal/Nares
[2021-08-16 14:12] LABS: COVID-19 PCR Negative (Negative)
== END 2021-08-16 02:30 | disposition home or self-care (01) ==
LOC: LBO 02:29
PROVIDERS: PCP Internal Medicine; Visit Provider Student in an Organized Health Care Education/Training Program
DX: Z20.822 Contact with and (suspected) exposure to COVID-19 (principal)
CPT/HCPCS: 87635

== ENCOUNTER 2021-08-18 06:01 | Day surgery (SDC) | payer MEDICAID, SELFPAY ==
[2021-08-18] VITALS (12 sets, daily range): BP systolic 113–153; BP diastolic 65–89; PULSE 60–73; RESP 10–18; TEMP 35.7–36.5; O2SAT 95–100; BMI 23.5
[2021-08-18] MEDS: Lactated Ringers 1,000 ML 80 ML IV (06:34)
--- NOTE | 2021-08-18 06:57 | W.ANESPRE ---
General Info Height: 5 ft 7 in Weight: 68.1 kg Body Mass Index (BMI): 23.5 Surgical Procedure: Operation Date: 08/18/21 07:40 Proposed Procedures Side Surgeon p Shoulder Rotator Cuff Arthroscopic, arthroscopic debridment and bicep tenodesis Right Levi Bajwa MD Meds Allergies and Home Medications Allergies Allergy/AdvReac Type Severity Reaction Status Date / Time sulfamethoxazole Allergy Intermediate RASH Verified 08/18/21 06:12 [From Bactrim] trimethoprim [From Bactrim] Allergy Intermediate RASH Verified 08/18/21 06:12 Home Medication Medication Instructions Recorded aspirin [Aspirin Low-Strength] 81 mg PO DAILY tab-cap 08/13/13 multivitamin [Daily Multi-Vitamin] 1 ea PO DAILY 08/13/13 omega-3 fatty acids-fish oil 1 ea PO DAILY #2 08/13/13 amitriptyline 50 mg PO HS tab-cap 08/25/14 estradiol-norethindrone acet 1 1 tab PO DAILY #84 tab 05/17/21 mg-0.5 mg tablet acetaminophen 500 mg PO Q6H PRN #60 tab 08/11/21 ibuprofen 600 mg PO TID PRN #60 tab 08/11/21 oxycodone 5 mg PO Q6H PRN #18 tab 08/11/21 Current Visit Medications: Current Medications Generic Name Dose Route Start Last Admin Trade Name Freq PRN Reason Stop Dose Admin Ringer's Solution 1,000 mls @ 80 mls/hr 08/18/21 06:00 08/18/21 06:34 IV 09/14/21 23:59 80 mls/hr INFUSION ELIEL Administration Cefazolin Sodium/Dextrose 2 gm in 50 mls @ 100 mls/hr 08/18/21 06:00 u Ancef Duplex IVPB 08/18/21 16:00 PREOP ELIEL IV Miscellaneous Supplies 1 each 08/18/21 06:00 Iv Access IV 09/14/21 23:59 DIRECTED ELIEL Sodium Chloride 0 ml 08/18/21 06:00 Normal Saline Flush 10 Ml Syr IV 09/14/21 23:59 PRN PRN Sodium Chloride 0 ml 08/18/21 06:00 Normal Saline 10 Ml Vial IJ 09/14/21 23:59 DIRECTED PRN Sterile Water 0 ml 08/18/21 06:00 Water,Injection,Sterile 10 Ml Vial IJ 09/14/21 23:59 DIRECTED PRN PFSH Active Problems Active Problems: Problem Status Onset Code Malignant hyperthermia T88.3XXA Right shoulder pain M25.511 Tendinitis of long head of biceps brachii of right shoulder M75.21 SLAP lesion of right shoulder S43.431A Impingement syndrome of right shoulder M75.41 Right rotator cuff tendinitis M75.81 Anxiety 08/13/13 F41.9 Chronic neck pain 08/13/13 M54.2, G89.29 Medical History Medical History Anxiety (08/13/13) Chronic neck pain (08/13/13) Family history of malignant hyperthermia History of postoperative nausea and vomiting Surgical History Surgical History Cautery of R neck nerves 2012 x 2 procedures [place] of right [place] 1[place] [facility] [place] 1997 Tobacco Smoking/Tobacco Use Status: Former Tobacco Use Alcohol Alcohol Intake: current Alcohol intake frequency: 0-2 drinks per day Alcohol type: wine Substance Use Substance use: Never Substance use type: does not use Prental History History 4 Para 2 Hx # Term Pregnancies Multiple births Hx # Pregnancies Ectopic pregnancies AB induced Hx Number of Living Children AB spontaneous Vital Signs and Lab Results Vital Signs Most Recent Vital Signs in EMR: Most Recent Vital Signs Temp Pulse Resp BP Pulse Ox 35.7 C L 73 18 128/84 99 08/18/21 06:05 08/18/21 06:05 08/18/21 06:05 08/18/21 06:05 08/18/21 06:05 Lab Results Blood Type / Crossmatch: No Data to Display Complete Blood Count: No Data to Display Complete Metabolic Panel: No Data to Display Liver Function Panel: No Data to Display Coagulation Panel: No Data to Display Cardiac Panel: No Data to Display Arterial Blood Gas: No Data to Display Venous Blood Gas: No Data to Display Pancreas Panel: No Data to Display Thyroid Panel: No Data to Display Infectious Disease: Coronavirus (COVID-19)(PCR) Negative (Negative) 08/16/21 09:40 08/16/21 Coronavirus 2019 Source Nasal/Nares 08/16/21 09:40 08/16/21 Blood Cultures: No Data to Display Toxicology Panel: No Data to Display
--- NOTE | 2021-08-18 07:11 | W.PREOPHP ---
Date of service: 08/18/21 Time of Service: 07:11 Assessment and Plan Assessment and plan (1) Tendinitis of long head of biceps brachii of right shoulder: Status: Acute (2) SLAP lesion of right shoulder: Status: Acute Qualifiers: Encounter type: subsequent encounter Qualified Code(s): S43.431D - Superior glenoid labrum lesion of right shoulder, subsequent encounter (3) Complete tear of right rotator cuff: Status: Acute Assessment and plan: Abhishek is a 56-year-old who has a rotator cuff tear of the right shoulder along with a SLAP tear. She has failed conservative, nonoperative options. She desires to proceed surgery. I reviewed the surgery with her in detail. I discussed the technical issues with the retraction of the tendon. I discussed the potential need to go open or to have an incomplete repair. I reviewed the risk of the procedure to include bleeding, infection, pain, stiffness, damage to nerves and vessels, damage to muscle tendons, retear, incomplete repair, need for repeat procedures, blood clot. Despite these risk, she elects to proceed. Qualifiers: Rotator cuff tear trauma status: unspecified whether traumatic Qualified Code(s): M75.121 - Complete rotator cuff tear or rupture of right shoulder, not specified as traumatic History of Present Illness History of Present Illness Chief Complaint: Right Rotator Cuff Tear Narrative: Lauren is a 56-year-old female who has continued right shoulder pain. She has a known SLAP lesion and rotator cuff tear of the right shoulder. This has been confirmed by MRI. She has failed nonoperative treatment options and desires for this to be fixed surgically. She was initially scheduled for surgery last week but was informed of the last minute about some difficulties in anesthesia and therefore was postponed to this week. She denies any sick contacts. She has no fevers or chills. No cough, chest pain, or shortness of breath. Review of Systems All systems reviewed & are unremarkable except as noted in HPI and below [facility] Medical History Anxiety (08/13/13) Chronic neck pain (08/13/13) Family history of malignant hyperthermia History of postoperative nausea and vomiting Surgical History Cautery of R neck nerves 2012 x 2 procedures History of right [place]oide[place] Pt [place] 1[place] [facility] [place] of [place] 1997 Family History Sister Manda-Danlos syndrome Sister Manda-Danlos syndrome Mother Hyperlipidemia Sister Manda-Danlos syndrome Other Diabetes Personal history of malignant neoplasm Social History Smoking/Tobacco Use Status: Former Tobacco Use Quit Date: 10/16/94 Smoking risk assessment performed?: Yes Alcohol Intake: current Alcohol Intake frequency: 0-2 drinks per day Alcohol type: wine Drug use: Never Substance use type: does not use Current gender identity: female Do you feel safe at home: Yes Do you feel safe in your relationship?: Yes History History 4 Para 2 Hx # Term Pregnancies Multiple births Hx # Pregnancies Ectopic pregnancies AB induced Hx Number of Living Children AB spontaneous Meds Allergies and Home Medications Allergies Allergy/AdvReac Type Severity Reaction Status Date / Time sulfamethoxazole Allergy Intermediate RASH Verified 08/18/21 06:12 [From Bactrim] trimethoprim [From Bactrim] Allergy Intermediate RASH Verified 08/18/21 06:12 Home Medications Medication Instructions Recorded Confirmed Type aspirin [Aspirin Low-Strength] 81 mg PO DAILY tab-cap 08/13/13 08/18/21 History multivitamin [Daily Multi-Vitamin] 1 ea PO DAILY 08/13/13 08/18/21 History omega-3 fatty acids-fish oil 1 ea PO DAILY #2 08/13/13 08/18/21 History amitriptyline 50 mg PO HS tab-cap 08/25/14 08/18/21 History estradiol-norethindrone acet 1 1 tab PO DAILY #84 tab 05/17/21 08/18/21 Rx mg-0.5 mg tablet acetaminophen 500 mg PO Q6H PRN #60 tab 08/11/21 08/18/21 Rx ibuprofen 600 mg PO TID PRN #60 tab 08/11/21 08/18/21 Rx oxycodone 5 mg PO Q6H PRN #18 tab 08/11/21 08/16/21 Rx Exam Resp Auscultation: clear to auscultation bilaterally Cardio Rate: regular rate Rhythm: regular rhythm Results Imaging Imaging Studies: MRI of the right shoulder shows a large SLAP tear. There is also a notable retracted tear of the supraspinatus involving the entirety of the supraspinatus tendon retracted almost 3 cm to level the glenoid. No fatty atrophy is appreciated. No significant tearing of the infraspinatus. No apparent tearing of the subscapularis. Last Vital Signs Temp 35.7 C L 08/18/21 06:05 Pulse 73 08/18/21 06:05 Resp 18 08/18/21 06:05 BP 128/84 08/18/21 06:05 Pulse Ox 99 08/18/21 06:05
--- NOTE | 2021-08-18 07:12 | W.ANESPRE ---
General Info Date of Service Date Performed: 08/18/21 Height: 5 ft 7 in Weight: 68.1 kg Body Mass Index (BMI): 23.5 Surgical Procedure: Operation Date: 08/18/21 07:40 Proposed Procedures Side Surgeon p Shoulder Rotator Cuff Arthroscopic, arthroscopic debridment and bicep tenodesis Right Levi Bajwa MD Meds Allergies and Home Medications Allergies Allergy/AdvReac Type Severity Reaction Status Date / Time sulfamethoxazole Allergy Intermediate RASH Verified 08/18/21 06:12 [From Bactrim] trimethoprim [From Bactrim] Allergy Intermediate RASH Verified 08/18/21 06:12 Home Medication Medication Instructions Recorded aspirin [Aspirin Low-Strength] 81 mg PO DAILY tab-cap 08/13/13 multivitamin [Daily Multi-Vitamin] 1 ea PO DAILY 08/13/13 omega-3 fatty acids-fish oil 1 ea PO DAILY #2 08/13/13 amitriptyline 50 mg PO HS tab-cap 08/25/14 estradiol-norethindrone acet 1 1 tab PO DAILY #84 tab 05/17/21 mg-0.5 mg tablet acetaminophen 500 mg PO Q6H PRN #60 tab 08/11/21 ibuprofen 600 mg PO TID PRN #60 tab 08/11/21 oxycodone 5 mg PO Q6H PRN #18 tab 08/11/21 Current Visit Medications: Current Medications Generic Name Dose Route Start Last Admin Trade Name Freq PRN Reason Stop Dose Admin Ringer's Solution 1,000 mls @ 80 mls/hr 08/18/21 06:00 08/18/21 06:34 IV 09/14/21 23:59 80 mls/hr INFUSION ELIEL Administration Cefazolin Sodium/Dextrose 2 gm in 50 mls @ 100 mls/hr 08/18/21 06:00 Ancef Duplex IVPB 08/18/21 16:00 PREOP ELIEL IV Miscellaneous Supplies 1 each 08/18/21 06:00 Iv Access IV 09/14/21 23:59 DIRECTED ELIEL Sodium Chloride 0 ml 08/18/21 06:00 Normal Saline Flush 10 Ml Syr IV 09/14/21 23:59 PRN PRN Sodium Chloride 0 ml 08/18/21 06:00 Normal Saline 10 Ml Vial IJ 09/14/21 23:59 DIRECTED PRN Sterile Water 0 ml 08/18/21 06:00 Water,Injection,Sterile 10 Ml Vial IJ 09/14/21 23:59 DIRECTED PRN PFSH Active Problems Active Problems: Problem Status Onset Code Malignant hyperthermia T88.3XXA Right shoulder pain M25.511 Tendinitis of long head of biceps brachii of right shoulder M75.21 SLAP lesion of right shoulder S43.431A Impingement syndrome of right shoulder M75.41 Right rotator cuff tendinitis M75.81 Anxiety 08/13/13 F41.9 Chronic neck pain 08/13/13 M54.2, G89.29 Medical History Medical History (Updated 08/18/21 @ 07:14 by Levi Bajwa MD) Anxiety (08/13/13) Chronic neck pain (08/13/13) Family history of malignant hyperthermia History of postoperative nausea and vomiting Surgical History Surgical History Cautery of R neck nerves 2012 x 2 procedures History of right mastoidectomy Pt reports at Age 1, [facility] Ligation of fallopian tube 1997 Tobacco Smoking/Tobacco Use Status: Former Tobacco Use Alcohol Alcohol Intake: current Alcohol intake frequency: 0-2 drinks per day Alcohol type: wine Substance Use Substance use: Never Substance use type: does not use Prental History History 4 Para 2 Hx # Term Pregnancies Multiple births Hx # Pregnancies Ectopic pregnancies AB induced Hx Number of Living Children AB spontaneous Vital Signs and Lab Results Vital Signs Most Recent Vital Signs in EMR: Most Recent Vital Signs Temp Pulse Resp BP Pulse Ox 35.7 C L 73 18 128/84 99 08/18/21 06:05 08/18/21 06:05 08/18/21 06:05 08/18/21 06:05 08/18/21 06:05 Lab Results Blood Type / Crossmatch: No Data to Display Complete Blood Count: No Data to Display Complete Metabolic Panel: No Data to Display Liver Function Panel: No Data to Display Coagulation Panel: No Data to Display Cardiac Panel: No Data to Display Arterial Blood Gas: No Data to Display Venous Blood Gas: No Data to Display Pancreas Panel: No Data to Display Thyroid Panel: No Data to Display Infectious Disease: Coronavirus (COVID-19)(PCR) Negative (Negative) 08/16/21 09:40 08/16/21 Coronavirus 2019 Source Nasal/Nares 08/16/21 09:40 08/16/21 Blood Cultures: No Data to Display Toxicology Panel: No Data to Display Anesthesia Assessment and Plan Anesthesia History Personal History: PONV and Delayed Emergence Family History: Malignant Hyperthermia Exercise Tolerance Exercise Tolerance: Metabolic Equivalents>4 Pertinent Negatives Pertinent Negatives: No Symptoms of GERD, No Major Cardiovascular Symptoms or Complaints, No Major Pulmonary Symptoms or Complaints and No History of CVA/TIA Cardiac & Pulmonary Exam Cardiac Exam: Normal S1/S2 Heart Sounds Pulmonary Exam: Clear Bilateral Breath Sounds Airway Exam Known Difficult Airway: No Mallampati Class: 1 Mouth Opening: Normal (> 3cm) Thyromental Distance: Greater than 3 cm Neck Range of Motion: Full ROM Neck Circumference: Normal Teeth Condition: Normal Dentition ASA Classification ASA Score: ASA 2 Emergency Case?: No NPO Status NPO Status: NPO Clears >2 hours, Solids >8 hours Anesthesia Plan Resuscitation Status: Full Code Anesthesia Technique: General Anesthesia Airway Planned: Endotracheal Tube Monitors Used: Standard Monitors
--- NOTE | 2021-08-18 07:22 | W.PM.DSUDISC ---
Discharge Plan Disposition Patient Disposition: HOME Condition: Good Discharge Details Reason For Visit: (R) SHOULDER DEBRIDEMENT & BICEPS Attending Provider: Levi Bajwa Primary Care Provider: Derek Lilly Home Meds and New Rx's Prescriptions: New acetaminophen 500 mg tablet 500 mg PO Q6H PRN (Reason: pain) Qty: 60 RF: 2 ibuprofen 600 mg tablet 600 mg PO TID PRN (Reason: pain) Qty: 60 RF: 0 oxycodone 5 mg tablet 5 mg PO Q6H PRN (Reason: severe post-operative pain) Qty: 18 RF: 0 Continued estradiol-norethindrone acet [Activella] 1-0.5 mg tablet 1 tab PO DAILY Qty: 84 RF: 3 multivitamin [Daily Multi-Vitamin] 1 EACH tablet 1 ea PO DAILY RF: 0 aspirin [Aspirin Low-Strength] 81 MG tablet,chewable 81 mg PO DAILY RF: 0 omega-3 fatty acids-fish oil 1 EACH capsule 1 ea PO DAILY Qty: 2 RF: 0 amitriptyline 25 MG tablet 50 mg PO HS RF: 0 Discontinued acetaminophen 500 mg tablet 500 mg PO Q6H PRN (Reason: pain) Qty: 60 RF: 2 ibuprofen 600 mg tablet 600 mg PO TID PRN (Reason: pain) Qty: 60 RF: 0 oxycodone 5 mg tablet 5 mg PO Q6H PRN (Reason: severe post-operative pain) Qty: 18 RF: 0 Discharge Instructions Stand Alone Forms: Aydee Solis w/RCR Equipment/Supplies: Bolster Pillow and Sling Remove Dressings/Wound Care:: 72 hours Shower/Bathe:: 72 hours Diet:: As Tolerated Discharge Orders Discharge Orders: Discharge Order (Routine); Ordered 08/18/21 Ordered By: Lara Cooper DS: Diagnosis Discharge Diagnosis (1) Tendinitis of long head of biceps brachii of right shoulder: Status: Acute (2) SLAP lesion of right shoulder: Status: Acute (3) Complete tear of right rotator cuff: Status: Acute
--- NOTE | 2021-08-18 07:47 | W.ANESNERVE ---
Nerve Block Single Injection Procedure Date and Time Date Performed: 08/18/21 Procedure Start: 07:21 Location Where Procedure Performed Procedure Location: Day Surgery Unit Reason Performed: Postoperative Analgesia Requesting Provider: Levi Bajwa Timeout Performed Timeout Performed: Yes Monitoring Used ECG, Blood Pressure and SpO2 Sterility Sterility: Hand Hygiene, Surgical Cap, Surgical Mask, Sterile Gloves and Chlorhexidine Sedation Given During Procedure Sedation Given (Indicate Dose Given): Versed IV Dose:: 2mg Patient Mental Status Patient Mental Status: Sedate with meaningful communication Nerve Block 1st Nerve Block: Laterality: Right Block Type: Interscalene Needle / Catheter Used: 100mm SonoPlex II Local Anesthetic Bolus (Indicate Dose Given): Lidocaine used for local infiltration of skin, Bupivacaine 0.5% Dose:: 10 mL and Exparel Dose:: 10 mL Additives (Indicate Dose Given): Normal Saline Ultrasound: Sterile probe cover and gel used Ultrasound Image Saved?: Yes Nerve Stimulator: Not Used Paresthesia: None Procedure Tolerated: No Complications Procedure Outcome: Successful Performed By: Anneliese Koenig Supervised By: Oleg Stevens
[2021-08-18] MEDS: ceFAZolin 2 GM/50 ML BAG IVPB (07:54)
[2021-08-18] MEDS: EPINEPHrine 30 MG/30 ML VIAL (10:26)
[2021-08-18] MEDS: HYDROmorphone 2 MG/ML VIAL IVP ×3 (11:09→11:27)
--- NOTE | 2021-08-18 11:12 | W.ANESPOSTOP ---
Postoperative Evaluation Date, Time and Location Date Performed: 08/18/21 Time Performed: 11:12 Patient Location: PACU Vital Signs Most Recent Imported Vital Signs: Most Recent Vital Signs Temp Pulse Resp BP Pulse Ox 36.4 C L 65 15 137/83 98 08/18/21 10:55 08/18/21 10:55 08/18/21 10:55 08/18/21 10:55 08/18/21 10:55 Pain Score Most Recent Pain Score: Most Recent Pain Score Pain Level 7 08/18/21 10:55 Assessment Mental Status: Awake (Alert & Oriented to Patient Baseline) Airway and Respiratory Function: Patent airway with normal (patient baseline) respiratory exam Cardiovascular Function: Hemodynamically Stable Hydration Status: Adequately Hydrated Nausea & Vomiting: No Nausea or Vomiting Pain: Pain is Moderate or Severe Postoperative Pain Management: Pain being addressed with medication Peripheral Nerve Block: Regional nerve block not resolved at time of post operative discharge
[2021-08-18] MEDS: Normal Saline Flush 10 ML SYR IV (11:13)
--- NOTE | 2021-08-18 21:03 | W.PM.OP ---
Date of service: 08/18/21 Time of Service: 10:30 Operative Note Operative Note DATE OF PROCEDURE: 08/18/21 PRE-OP DIAGNOSIS: Right Rotator Cuff Tear, Right SLAP Tear POST-OP DIAGNOSIS: same PROCEDURE: - Extensive debridement of anterior and posterior glenohumeral joint and rotator cuff - Sub-pectoral biceps tenodesis SURGEON: Levi Bajwa GIZZARD PULLER: Lara Cooper ANESTHESIA TYPE: General LMA/ETT Refer to Anesthesia Record ESTIMATED BLOOD LOSS: 20 PATHOLOGY: none sent TOURNIQUET TIME: 0 COMPLICATIONS: None Patient was transported to: PACU Patient's condition: stable Indications: I have seen Lauren in clinic for a painful shoulder. This occurred after an injury while lifting a heavy pot. However, the majority of her symptoms seem to be related to the SLAP tear and the biceps tendon. However, nonoperative measures continue to fail and her weakness became more evident prompting an MRI which confirmed a SLAP tear as well as a retracted supraspinatus tear. Nonoperative measures were exhausted but disability and pain persisted. I discussed shoulder arthroscopy and procedures. I reviewed the risks of the procedures to include, but not limited to, bleeding, infection, pain, stiffness, damage to nerves or vessels, recurrence, hardware failure, blood clot. Despite these risks, the patient elected to proceed. Initially, she was plan to go to the operating room last week but there was a last-minute discovery of family history of malignant hyperthermia as well as delayed emergence. Therefore, she was delayed till today to make appropriate accommodations and preparations. Findings: A diagnostic arthroscopy was performed with the following findings: Articular Side - Glenohumeral Joint: Central area of small cartilage defect but no overwhelming chondromalacia - Labrum: Diffuse tearing of the superior labrum from 11:00 to 3:00. There also was a loosely associated superior?anterior labrum associated with what appears to be a Chataignier complex. - Cuff: Significantly retracted supraspinatus tear - Biceps: Inflammatory changes along the biceps and partial tearing seen at the level of the anchor associated with labral tear at the anchor Subacromial Side - Bursal: Dense inflammatory tissue, mostly laterally and posteriorly. - Rotator Cuff: Retracted supraspinatus tear with stump of tendon on the greater tuberosity. - No significant anterolateral spurring The retracted supraspinatus tear was unable to be moved over to the medial edge of the tuberosity despite performing an interval slide and substantial release and dissection. Procedure Description: Lauren was greeted in the preoperative holding area where the correct side was identified and marked. The consent was reviewed with the patient and signed. The history and physical was updated. All questions were answered. She was taken back to the PACU for administration of an intrascalene nerve block. Lauren was then taken to the operating room. The patient was placed into the supine position on the operating room table. A general anesthetic was administered. She was then positioned in the beach chair position. All bony prominences were well padded. The head was placed in a foam hogshead dumper in a neutral position. Prophylactic antibiotics in the form of cefazolin were administered. The right arm/shoulder was then prepped with Chloraprep and draped in a standard fashion with stockinette and shoulder drape. A timeout to confirm correct identity, side and site, procedure, allergies, anesthesia, and medical concerns was performed. The arm was placed into a pneumatic kern, SPIDER2. The shoulder arthroscopy was then performed. The glenohumeral joint was injected with 20 cc of normal saline with good flow back. A standard posterior portal was made and the joint was entered atraumatically with a blunt arthroscope. Once inside we had good visualization of the structures of the glenohumeral joint. An anterior portal was established with spinal needle localization. A 6.5 mm cannula was inserted. A probe was then used to perform a diagnostic arthroscopy. There is noted to be no significant cartilage damage of the glenoid humeral joint. The labrum was frayed throughout the superior portion from 11:00 to 3:00 with notable detachment from superior glenoid. There also was some fraying of the superior?anterior labrum which was diminutive in stature. There were no loose bodies in the inferior pouch. The superior rotator cuff was absent. The footprint was clear from the supraspinatus tendon. The infraspinatus was intact. There was some tissue still remaining on the greater tuberosity. The biceps tendon had some fraying, especially towards the anchor, and inflammatory changes. The labrum was torn at the bicipital anchor. The subscapularis was intact. I then performed a biceps tenotomy with electrocautery. I also debrided the superior labrum any frayed tissue. I utilized the shaver to debride the superior aspect of the glenoid for potential labral scarring. The underside of the infraspinatus was also debrided down with there is was some partial tearing of the articular sided fibers however, the bulk of infraspinatus was still intact. Subscapularis was also fully identified and showed no sign of tearing. I debrided anteriorly and posteriorly of any synovitis. I also debrided any remnant tissue from the tuberosity. The scope was then removed from the shoulder joint. The biceps tenodesis was then performed. With the arm and some slight external rotation abduction pectoralis major tendon was identified. A 2 cm incision was made overlying the insertion to the humerus. Sharp dissection was carried onto the skin. Blunt dissection was carried down to the fascia the biceps musculature. This was entered with a tenotomy scissors. The biceps groove was palpable and the biceps tendon was palpable. It was withdrawn from the wound using Allis clamp and finger dissection. Once the biceps tendon was out of the arm the biceps groove was prepared using a rasp. A Mitek Lupine anchor was inserted into the biceps groove at the level of the pectoralis major insertion. This was tested to make sure had excellent fixation into the bone. Using a free needle I then placed a locking Krak?w stitch and each side of the biceps tendon using one limb from each suture at the level of the muscular tendinous junction and moving proximally. Excess tendon was then cut. Using the free suture limb I then shuttled the tendon down to the prepared surface of the humerus. It laid flat against the humerus. It was at the level of the pectoralis major tendon. The suture limbs were then tied. The wound was irrigated. The subcutaneous tissue was reapproximated with a 2-0 Vicryl. The arthroscope was then inserted into the subacromial space. The 6.5 mm cannula was placed lateral to the CA ligament. A debridement of the bursal tissue was then performed working from the anterior margin of the acromion towards the posterior margin and medial. With this visualization I then placed 2 additional portals using spinal needle localization. An anterolateral portal was established as well as a posterior lateral portal and cannulas were placed. These became the primary working and viewing portals. From this position the rotator cuff was easily visualized. This appeared to be a retracted supraspinatus tear. The tendon was medial to the glenoid. Perform an aggressive debridement of the tissue around the edge of the tendon where there was tendon bulk but not tendon length. There is adhesion seen anteriorly to interval tissue as well as the infraspinatus. The tuberosity was prepared and removed of any excess tissue and the bone was debrided. A traction suture was placed into the supraspinatus tendon for mobilization. Unfortunately, mobilization was very minimal and it appeared that the supraspinatus tendon was torn in its midportion. For better mobilization I used tissue liberator's to free the undersurface of the supraspinatus tendon. I also dissected off the acromion to identify the scapular spine for better identification of the supraspinatus tendon and its direction. There was adhesions of connections between it and the infraspinatus which I released fully performing an interval slide. I also released anteriorly between the coracoid and any attachments between it and the supraspinatus tendon, while leaving this interval tissue for hopeful assistance with closure. This allowed treatment and move over to the medial aspect of the tuberosity. Therefore, I proceeded with attempted fixation. I placed two 4.5 mm Mitek Healix anchors along the medial row. The bone was excellent with great purchase. I utilized the traction sutures to help manipulate the tendon edge and placed 3 horizontal mattress sutures into the supraspinatus tendon. Unfortunately, with manipulating the tendon and trying to tie it down the tissue tore through the sutures despite going into better tissue and attempting other releases. At this point, it seems unlikely that any repair would hold with this amount of tension especially in this perfect scenario. Therefore, I reached out during the operation to my partner, Dr. Pratt, discussed this case. He agreed that proceeding with attempted primary repair is not likely to be successful and would recommend a superior capsule reconstruction. Unfortunate, this is a procedure that did not perform nor do we have graft on hand. Therefore, at this point I remove the anchors from the greater tuberosity. A very small portion of the tip of the posterior anchor broke during its removal but otherwise the bulk of anchor material was removed and the anterior anchor was removed completely. Remnant suture material was also removed. The scope equipment was removed from the shoulder. Excess fluid was evacuated. The portal sites were closed with 3-0 Monocryl. The wounds were dressed with Steri-Strips, 4 x 4's, ABDs, Medipore tape. A sling was applied. The patient tolerated the procedure well and was returned to the PACU in a stable condition suffering no known complication except for the inability to complete the rotator cuff repair. She tolerated the anesthetic well without any concern of malignant hyperthermia. She also had an uneventful emergence. I called Lauren's to discuss this finding of the operation and the inability to complete the rotator cuff repair. I also discussed this with her directly in the recovery room when she was recovered fully from the anesthetic.
--- NOTE | 2021-08-19 12:38 | PDOC.ANES ---
Date of service: 08/19/21 Time of Service: 12:38 Anesthesia Note Report Anesthesia Note: On her post op phone call Lauren expressed concern over her face being red after surgery. I reached out to her to discuss this. She states that her face is red and that it has never been red before. The right is more red then the left. She does not describe a strong line of demarcation, just that it slowly turns back to normal in the non-red spots. She states that it does not look like bruising. I stated that I am unsure as to why it would be red. She is having no issues swallowing or breathing. We discussed that it is unlikely to be a anesthesia drug reaction this many hours out. We also talked that it could be fluid from the surgery, possibly related to local tracking from her block. I stated that I would keep looking for an explanation and call her if I found one. She was encouraged to reach out with any other questions, or to seek emergency care if she has difficulty breathing or swallowing. We will follow up with her in the next few days.
--- NOTE | 2021-08-20 16:56 | PDOC.ANES ---
Date of service: 08/20/21 Time of Service: 16:56 Anesthesia Note Report Anesthesia Note: Followup call regarding redness on the right of face. I was able to talk to Lauren today and get a little more information. First the redness has resolved. There was a slight amount of itching as well but that has resolved also.Lauren took no new medicines, foods, or used any new laundry soaps. She identified the redness when she awoke early the morning following surgery. She had no signs or symptoms before this time. I stated that I could not identify what it was that caused the redness and slight itching. Lauren is now very satisfied as to her current situation.I reminded her if it recurred to call Anesthesia and if she had any trouble swallowing or breathing to call 911.
== END 2021-08-18 13:38 | disposition home or self-care (01) ==
PROVIDERS: PCP Internal Medicine; Visit Provider Student in an Organized Health Care Education/Training Program
PROC: (CPT 29827; principal; 2021-08-18 07:30)
DX: S43.431A Superior glenoid labrum lesion of right shoulder, initial encounter (principal); M75.121 Complete rotator cuff tear or rupture of right shoulder, not specified as traumatic; M75.21 Bicipital tendinitis, right shoulder; X50.0XXA Overexertion from strenuous movement or load, initial encounter
CPT/HCPCS: 23430; 29823; 76942; J0131; J0690; J1100; J1200; J1885; J2001; J2250; J2370; J2405; J2704

== ENCOUNTER 2021-08-24 16:39 | Outpatient (REF) | payer MEDICAID, SELFPAY ==
[2021-08-24 15:59] LABS: Source Nasal/Nares
[2021-08-24 18:48] LABS: COVID-19 PCR Negative (Negative)
== END 2021-08-24 16:40 | disposition home or self-care (01) ==
LOC: LBN 16:39
PROVIDERS: PCP Internal Medicine; Visit Provider Family Medicine
DX: Z20.822 Contact with and (suspected) exposure to COVID-19 (principal)
CPT/HCPCS: 87635

== ENCOUNTER 2021-09-01 02:43 | Outpatient (CLI) | payer MEDICAID, SELFPAY ==
[2021-09-01 10:57] LABS: Source Nasal/Nares
[2021-09-01 14:13] LABS: COVID-19 PCR Negative (Negative)
== END 2021-09-01 02:44 | disposition home or self-care (01) ==
LOC: LBO 02:43
PROVIDERS: PCP Internal Medicine; Visit Provider Student in an Organized Health Care Education/Training Program
DX: Z20.822 Contact with and (suspected) exposure to COVID-19 (principal); Z01.818 Encounter for other preprocedural examination
CPT/HCPCS: 87635

== ENCOUNTER 2021-09-03 06:04 | Day surgery (SDC) | payer MEDICAID, SELFPAY ==
[2021-09-03] VITALS (11 sets, daily range): BP systolic 113–124; BP diastolic 67–91; PULSE 66–79; RESP 15–19; TEMP 36.2–36.8; O2SAT 97–100; BMI 23.6
--- NOTE | 2021-09-03 06:26 | W.ANESPRE ---
General Info Date of Service Date Performed: 09/03/21 Height: 5 ft 7 in Weight: 68.6 kg Body Mass Index (BMI): 23.6 Surgical Procedure: Operation Date: 09/03/21 07:40 Proposed Procedures Side Surgeon p Shoulder Rotator Cuff Arthroscopic with SCR Allograft Right Carlos Pratt MD Meds Allergies and Home Medications Allergies Allergy/AdvReac Type Severity Reaction Status Date / Time sulfamethoxazole Allergy Intermediate RASH Verified 09/03/21 06:11 [From Bactrim] trimethoprim [From Bactrim] Allergy Intermediate RASH Verified 09/03/21 06:11 Home Medication Medication Instructions Recorded aspirin [Aspirin Low-Strength] 81 mg PO DAILY tab-cap 08/13/13 multivitamin [Daily Multi-Vitamin] 1 ea PO DAILY 08/13/13 omega-3 fatty acids-fish oil 1 ea PO DAILY #2 08/13/13 amitriptyline 50 mg PO HS tab-cap 08/25/14 estradiol-norethindrone acet 1 1 tab PO DAILY #84 tab 05/17/21 mg-0.5 mg tablet acetaminophen 500 mg PO Q6H PRN #60 tab 08/18/21 ibuprofen 600 mg PO TID PRN #60 tab 08/18/21 Current Visit Medications: Current Medications Generic Name Dose Route Start Last Admin Trade Name Freq PRN Reason Stop Dose Admin Ringer's Solution 1,000 mls @ 100 mls/hr 09/03/21 06:00 IV 09/14/21 23:59 INFUSION ELIEL Cefazolin Sodium/Dextrose 2 gm in 50 mls @ 100 mls/hr 09/03/21 06:00 Ancef Duplex IVPB 09/03/21 16:00 PREOP ELIEL IV Miscellaneous Supplies 1 each 09/03/21 06:00 Iv Access IV 09/14/21 23:59 DIRECTED ELIEL Sodium Chloride 0 ml 09/03/21 06:00 Normal Saline Flush 10 Ml Syr IV 09/14/21 23:59 PRN PRN Sodium Chloride 0 ml 09/03/21 06:00 Normal Saline 10 Ml Vial IJ 09/14/21 23:59 DIRECTED PRN Sterile Water 0 ml 09/03/21 06:00 Water,Injection,Sterile 10 Ml Vial IJ 09/14/21 23:59 DIRECTED PRN PFSH Active Problems Active Problems: Problem Status Onset Code Complete tear of right rotator cuff ~06/2020 M75.121 Malignant hyperthermia T88.3XXA Tendinitis of long head of biceps brachii of right shoulder M75.21 SLAP lesion of right shoulder S43.431A Impingement syndrome of right shoulder M75.41 Anxiety 08/13/13 F41.9 Chronic neck pain 08/13/13 M54.2, G89.29 Medical History Active Problem List Chronic neck pain (Acute 08/13/13) Anxiety (Acute 08/13/13) Tendinitis of long head of biceps brachii of right shoulder (Acute) SLAP lesion of right shoulder (Acute) Impingement syndrome of right shoulder (Acute) Malignant hyperthermia (Acute) Complete tear of right rotator cuff (Acute ~06/2020) Medical History Family history of malignant hyperthermia History of postoperative nausea and vomiting Surgical History Surgical History (Updated 09/03/21 @ 06:10 by Hailee Neal) Cautery of R neck nerves 2012 x 2 procedures History of right mastoidectomy Pt reports at Age 1, [facility] [place] Hx of shoulder surgery right Ligation of fallopian tube 1998 Tobacco Smoking/Tobacco Use Status: Former Tobacco Use Alcohol Alcohol Intake: current Alcohol intake frequency: 0-2 drinks per day Alcohol type: wine Substance Use Substance use: Never Substance use type: does not use Prental History History 4 Para 2 Hx # Term Pregnancies Multiple births Hx # Pregnancies Ectopic pregnancies AB induced Hx Number of Living Children AB spontaneous Vital Signs and Lab Results Vital Signs Most Recent Vital Signs in EMR: Most Recent Vital Signs Temp Pulse Resp BP Pulse Ox 36.8 C 76 16 121/91 H 100 09/03/21 06:13 09/03/21 06:13 09/03/21 06:13 09/03/21 06:13 09/03/21 06:13 Lab Results Blood Type / Crossmatch: No Data to Display Complete Blood Count: No Data to Display Complete Metabolic Panel: No Data to Display Liver Function Panel: No Data to Display Coagulation Panel: No Data to Display Cardiac Panel: No Data to Display Arterial Blood Gas: No Data to Display Venous Blood Gas: No Data to Display Pancreas Panel: No Data to Display Thyroid Panel: No Data to Display Infectious Disease: Coronavirus (COVID-19)(PCR) Negative (Negative) 09/01/21 09:38 09/01/21 Coronavirus 2019 Source Nasal/Nares 09/01/21 09:38 09/01/21 Blood Cultures: No Data to Display Toxicology Panel: No Data to Display Imaging and Studies Imaging and Studies EKG Summary: 09/12/20: Conclusion Sinus rhythm...normal P axis, V-rate 60- 99 Ventricular premature complex...V complex w/ short R-R interval Nonspecific intraventricular conduction delay...QRSd >115mS, not LBBB/RBBB I have reviewed and interpreted ECG and agree with software generated interpretation. Anesthesia Assessment and Plan Anesthesia History Personal History: PONV and Delayed Emergence Family History: Malignant Hyperthermia Exercise Tolerance Exercise Tolerance: Metabolic Equivalents>4 Pertinent Negatives Pertinent Negatives: No Major Cardiovascular Symptoms or Complaints and No Major Pulmonary Symptoms or Complaints Cardiac & Pulmonary Exam Cardiac Exam: Normal S1/S2 Heart Sounds Pulmonary Exam: Clear Bilateral Breath Sounds Implantable Cardiac Device Does patient have a Pacemaker or an ICD?: No Airway Exam Known Difficult Airway: No Mallampati Class: 1 Mouth Opening: Normal (> 3cm) Thyromental Distance: Greater than 3 cm Neck Range of Motion: Full ROM Neck Circumference: Normal Teeth Condition: Normal Dentition ASA Classification ASA Score: ASA 2 Emergency Case?: No NPO Status NPO Status: NPO Clears >2 hours, Solids >8 hours Anesthesia Plan Resuscitation Status: Full Code Anesthesia Technique: General Anesthesia Airway Planned: Endotracheal Tube Pain Management: Surgeon and patient request nerve block Monitors Used: Standard Monitors
[2021-09-03] MEDS: Lactated Ringers 1,000 ML 100 ML IV (06:50)
[2021-09-03] MEDS: ceFAZolin 2 GM/50 ML BAG IVPB ×2 (07:56→11:21)
--- NOTE | 2021-09-03 09:03 | W.ANESNERVE ---
Nerve Block Single Injection Procedure Date and Time Date Performed: 09/03/21 Procedure Start: 07:15 Location Where Procedure Performed Procedure Location: Day Surgery Unit Reason Performed: Postoperative Analgesia Requesting Provider: Carlos Pratt Timeout Performed Timeout Performed: Yes Monitoring Used ECG, Blood Pressure, SpO2 and See EMR for corresponding vital signs Sterility Sterility: Hand Hygiene, Surgical Cap, Surgical Mask, Sterile Gloves, Eye Protection and Chlorhexidine Sedation Given During Procedure Sedation Given (Indicate Dose Given): No Sedation given Patient Mental Status Patient Mental Status: Awake Nerve Block 1st Nerve Block: Laterality: Right Block Type: Interscalene Needle / Catheter Used: 80mm SonoPlex II Local Anesthetic Bolus (Indicate Dose Given): Lidocaine used for local infiltration of skin, Injected in 3-5ml increments after negative blood aspiration, Blood noted on aspiration (Needle noted to knick EJ during repositioning, needle removed and pressure help. No hematoma noted upon arrival to OR.), Bupivacaine 0.5% Dose:: 15mL and Exparel Dose:: 10mL Additives (Indicate Dose Given): None Ultrasound: Sterile probe cover and gel used Ultrasound Image Saved?: Yes Nerve Stimulator: Not Used Paresthesia: None Procedure Tolerated: Patient tolerated well Procedure Outcome: Successful Performed By: Elle Lopez
[2021-09-03] MEDS: EPINEPHrine 30 MG/30 ML VIAL (11:00)
--- NOTE | 2021-09-03 11:37 | W.PM.DSUDISC ---
Discharge Plan Disposition Patient Disposition: HOME Condition: Stable Discharge Details Reason For Visit: Right shoulder shoulder Attending Provider: Carlos Pratt Primary Care Provider: Derek Lilly Home Meds and New Rx's Prescriptions: Continued estradiol-norethindrone acet [Activella] 1-0.5 mg tablet 1 tab PO DAILY Qty: 84 RF: 3 multivitamin [Daily Multi-Vitamin] 1 EACH tablet 1 ea PO DAILY RF: 0 aspirin [Aspirin Low-Strength] 81 MG tablet,chewable 81 mg PO DAILY RF: 0 omega-3 fatty acids-fish oil 1 EACH capsule 1 ea PO DAILY Qty: 2 RF: 0 amitriptyline 25 MG tablet 50 mg PO HS RF: 0 acetaminophen 500 mg tablet 500 mg PO Q6H PRN (Reason: pain) Qty: 60 RF: 2 ibuprofen 600 mg tablet 600 mg PO TID PRN (Reason: pain) Qty: 60 RF: 0 Discharge Instructions Additional Instructions: Surgery: Right shoulder arthroscopy with allograft superior capsular reconstruction and rotator cuff repair. Prior shoulder arthroscopy with extensive debridement, subacromial decompression, and mini open subpectoral biceps tenodesis 08/18/[address] Bajwa. Activity: For 6 weeks, you should keep your arm at your side in a neutral position at all times except for physical therapy. Do not try to lift or raise your arm using your own muscles. You should use the sling whenever you are out of the house. You may have to adjust the abduction pillow or remove it for comfort. At home it is best to remove the sling and rest the arm on a pillow at your side or support the operative side with your other hand. You may allow the arm to dangle at your side. A physical therapy prescription will be sent electronically to begin in about 3 weeks. Prescriptions: No new Aspirin 81 mg take 1 daily to prevent a blood clot for 2 weeks Previously prescribed ibuprofen 600 mg and oxycodone 5 mg as needed for moderate to severe pain You may use [id number] Tylenol (acetaminophen) as needed for mild pain. These pain medications may be taken all at once or in different combinations as needed. Also, recommend Colace (docusate) as a stool softener as surgery and pain medicine cause constipation. Dressings: Remove shoulder bandage after 3 days. Leave the sticky Steri-Strips in place until they fall off or remove them after you shower. Cover the incisions with Band-Aids or leave them open to air. You may shower after 5 days. Follow-up: 10-[address] Pratt You may take off the leg compression stockings this evening at home. You may also leave them on a few days longer if you have a history of leg swelling or edema. Let us know right away if you develop any redness, drainage, fevers, chest pain, or trouble breathing. Do not drink alcohol or drive for at least 24 hours after anesthesia. Please call the office during business hours with any questions or concerns. Referrals: Carlos Pratt MD [ [facility] STAFF PHYSICIAN] - DS: Diagnosis Discharge Diagnosis (1) Complete tear of right rotator cuff: Status: Acute (2) SLAP lesion of right shoulder: Status: Acute (3) Tendinitis of long head of biceps brachii of right shoulder: Status: Acute
--- NOTE | 2021-09-03 12:01 | ROE_ITS ---
Date of service: 09/03/21 Time of Service: 07:30 Operative Note Operative Note DATE OF PROCEDURE: 09/03/21 PRE-OP DIAGNOSIS: Right: 1. Irreparable rotator cuff tear POST-OP DIAGNOSIS: same PROCEDURE: Right: 1. Rotator cuff repair, CPT# 73814. This involved repair of the infraspinatus using anchors and sutures to reattach the rotator cuff to the superior capsule and greater tuberosity. 2. Superior capsular reconstruction, CPT# 92392. This involved dermal allograft reconstruction of the superior capsule in order to stabilize the glenohumeral joint and prevent superior humeral migration. The carpenter's assistant was medically required in order to help assist in techniques above, which require positioning the arm, holding the arthroscope, and manipulating multiple instruments and sutures at the same time. This cannot be done without the help of an experienced carpenter's assistant. SURGEON: Carlos Pratt SKIN THERAPIST: Ruma Walker ANESTHESIA TYPE: General LMA/ETT and Primary Nerve Block Refer to Anesthesia Record ESTIMATED BLOOD LOSS: 15 PATHOLOGY: none sent COMPLICATIONS: None Patient was transported to: PACU Patient's condition: stable Implants: Arthrex: 3.9 mm corkscrew knotless x3, 4.75mm SwiveLocks x 4 Indications: The patient was diagnosed with the above conditions and appropriately indicated for surgical intervention. Please see complete medical record for details. Findings: Exam under anesthesia: Full range of motion, no instability Glenohumeral joint: Limited evaluation showed mild anterior labral fraying. Superior type II SLAP tear with prior biceps tenodesis. Preserved glenohumeral cartilage. Subacromial space: Profound full-thickness retracted supraspinatus rotator cuff tear with minimal tendon. Relatively intact infraspinatus posteriorly and wrapping around the greater tuberosity. Procedure Description: In the operating room, general anesthesia was induced. Bilateral shoulders were examined. The patient was positioned in the beachchair position. All bony prominences were well-padded. Preoperative antibiotics were administered. The shoulder was prepped and draped in the usual sterile fashion. The correct patient, procedure, and side of the procedure were all verified prior to incision. Starting through the previously made posterior portal, a limited diagnostic arthroscopy was performed through the subacromial joint. 8 x 3 mm passport cannulas were inserted at the anterior superior lateral, posterior superior, and 12 x 3 mm 50 yard line portals. The rotator cuff tear was examined and confirmed to be irreparable. There was minimal tendon remnant and essentially only supraspinatus muscle body retracted medial to the superior labrum. The superior labrum was examined about the site of the biceps anchor. There was an unstable type II SLAP tear and likely chronic coalescence and scarring of the medial labrum and rotator cuff preventing exposure of the glenoid. The unstable superior labrum was resected from anteriorly posteriorly using the radiofrequency wand and the superior glenoid rim prepared with the mechanical shaver and then rasp appropriately medially to optimize bone graft healing. 18- gauge spinal needles were used to localize placement of the anterior, superior, and posterior glenoid anchors through percutaneous portals taking care to ensure trajectory was on good bone outside the glenohumeral joint. The superior anchor was directed slightly more medially to avoid anchor convergence. Stab incisions were used followed by the corkscrew half pipe spear and corkscrew drill followed by 3.9 mm knotless corkscrew anchor placement. The most posterior anchor was predrilled and a more appropriate medial position after initially targeting a location deemed too close to the joint. All anchors were tested with good fixation and appropriate sliding of the length knotless mechanism. Attention was then turned to the greater tuberosity. Fibrinous material and prominent lateral bone were removed and smoothed to optimize lateral graft bone healing with the mechanical shaver and rasp. The prior medial row suture anchor sites were localized. Through the anterior superior lateral portal the punch and tap were used to confirm appropriate bone quality followed by placement of a 4.75mm SwiveLock anchor loaded with fiber tape. Through one of the pre-existing superior stab portals a second medial row posterior 4.75 mm swivel lock anchor loaded with fiber tape was placed into the other prepunched position. The arm was positioned in about 30 degrees of abduction slight forward flexion and gent le external rotation. The SCR measuring guide was then used to obtain graft dimensions. The fiber tapes were retrieved out the lateral cannula. Single set of repair sutures was also left in the posterior medial row anchor for planned infraspinatus repair to the greater tuberosity and graft. On the back table, the dermal allograft was carefully prepared to the dimensions noted to be 10 mm between medial row anchors as well as laterally with 30 mm from medial to lateral. About 5 mm margin was left medially, anterior, and posteriorly. The medial row anchors were used to measure for the most appropriate lateral additional graft, which actually measured 15 mm. The graft was cut and medial row graft passage sides prepunched. The graft was brought over to the arm carefully maintained over an [place] so as not to be on the skin. A BirdBeak was used to retrieve the anterior and posterior medial row fiber tapes and repair stitch through their appropriate positions in the graft. Carefully the sutures were maintained down while the repair and link stitch from the anterior glenoid anchor were retrieved. The repair stitch was passed using the scorpion in an inverted horizontal mattress at the appropriate position and then shuttled through its corresponding corkscrew anchor removing the slack. This was repeated similarly for the middle and posterior glenoid anchors. The graft was then carefully doubled over in the back grasper used to deliver it into the joint while removing tension from the glenoid knotless anchors. The graft deployed well and provisional tension achieved on all 3 glenoid anchors using a cuff grasper and probed to ensure the graft had good placement and coverage over the glenoid. The tape retriever was then used to take the slack out of the fiber tapes from medial row anchors. There is excellent graft placement. The sutures were brought out accessory anterior and posterior portals. A suture tape from the anterior and posterior medial row anchors were then retrieved and secured laterally anteriorly and posteriorly in a knotless speed bridge fashion with excellent reduction and compression of the graft over the tuberosity. Final tightening was confirmed on the glenoid anchors and suture tails cut. The humerus was attempted to translate superiorly and could not engage the acromion. Attention was then turned to the infraspinatus rotator cuff repair, which was well positioned with good tissue quality adjacent to the graft as well as the posterior medial row anchor. A repair stitch from the posterior medial row anchor was passed through the infraspinatus at its corresponding level using the scorpion and secured with an [facility] arthroscopic knot. An additional 2 side to side #2 FiberWire infraspinatus posterior allograft superior capsular repair stitches were performed using the self retrieving suture passer and secured with [facility] knots. There was solid rotator cuff repair and closure of the defect between the graft and infraspinatus. The arm was inspected through range of motion in all repair, fixation, graft placement was excellent. There was no significant gap anteriorly about the interval and no appropriate anterior lateral tissue to incorporate a repair without risking stiffness. The shoulder was copiously irrigated and then drained of arthroscopic fluid. All portal sites and stab incisions were copiously irrigated. These incisions were closed using 3-0 Monocryl in a buried fashion and then covered with Mastisol, Steri-Strips, Xeroform, dry gauze, and ABDs. The dressings were covered and secured with Medipore tape. The operative extremity was placed into a sling for immobilization. The patient awoke from anesthesia without complication and was transferred to the recovery room in a stable condition.
--- NOTE | 2021-09-03 13:43 | W.ANESPOSTOP ---
Postoperative Evaluation Date, Time and Location Date Performed: 09/03/21 Time Performed: 13:44 Patient Location: Day Surgery Unit Vital Signs Most Recent Imported Vital Signs: Most Recent Vital Signs Temp Pulse Resp BP Pulse Ox 36.4 C L 66 18 114/75 97 09/03/21 13:02 09/03/21 13:02 09/03/21 13:02 09/03/21 13:02 09/03/21 13:02 Pain Score Most Recent Pain Score: Most Recent Pain Score Pain Level 3 09/03/21 12:35 Assessment Mental Status: Awake (Alert & Oriented to Patient Baseline) Airway and Respiratory Function: Patent airway with normal (patient baseline) respiratory exam Cardiovascular Function: Hemodynamically Stable Hydration Status: Adequately Hydrated Nausea & Vomiting: No Nausea or Vomiting Pain: Pain is tolerable per patient (Reporting some pain in left shoulder. Pain 3-4/10. Per patient and has been intermittent for the past few weeks. Better when the patient is sitting up. ) Peripheral Nerve Block: Regional nerve block not resolved at time of post operative discharge
== END 2021-09-03 15:26 | disposition home or self-care (01) ==
PROVIDERS: PCP Internal Medicine; Visit Provider Student in an Organized Health Care Education/Training Program
PROC: (CPT 29827; principal; 2021-09-03 07:30)
DX: M75.121 Complete rotator cuff tear or rupture of right shoulder, not specified as traumatic (principal); S43.431A Superior glenoid labrum lesion of right shoulder, initial encounter; M75.21 Bicipital tendinitis, right shoulder; X58.XXXA Exposure to other specified factors, initial encounter
CPT/HCPCS: 29806; 29827; J0131; J0690; J1100; J1200; J2250; J2370; J2405

== ENCOUNTER 2021-09-14 03:33 | Outpatient (CLI) | payer MEDICAID, SELFPAY ==
--- NOTE | 2021-10-07 10:57 | W.CARDEVENT ---
Date of service: 10/07/21 Time of Service: 10:57 Cardiac Event Recorder Referring Provider:: Bobby Goodwin Indications:: Chest discomfort Cardiac Event Note: This is a 14-day event monitor, reportedly ordered for chest discomfort Predominant rhythm was sinus. Average heart rate was 77, minimum 56, maximum 121 There were very rare atrial premature beats There was one 7 beat run of nonsustained ventricular tachycardia which was asymptomatic.. There were no other ventricular dysrhythmias There was no atrial fibrillation, no high-grade AV block, no pauses greater than 3 seconds Patient symptoms were reported which corresponded to sinus rhythm, not to any dysrhythmia
== END 2021-09-14 03:34 | disposition home or self-care (01) ==
PROVIDERS: PCP Internal Medicine; Visit Provider Family Medicine
DX: R07.89 Other chest pain (principal)
CPT/HCPCS: 93246

== ENCOUNTER 2022-05-31 17:33 | Emergency (ER) | payer MEDICAID, SELFPAY ==
[2022-05-31] VITALS (10 sets, daily range): BP systolic 128–129; BP diastolic 75–87; PULSE 70–92; RESP 9–18; TEMP 37.1; O2SAT 99
--- NOTE | 2022-05-31 17:45 | RT.EKG_ITS ---
APPROVED REPORT Exam: Resting ECG Reason for Exam: chest pain Patient Location: E HR:100 bpm ECG Measurements Heart Rate 100 AXIS W[place] 158 P 78 QRSd 97 QRS 96 QT 346 T 25 QTc 448 Conclusion Sinus tachycardia...rate> 99 Low voltage, extremity leads...all extremity leads <0.5mV
--- NOTE | 2022-05-31 18:10 | W.ED.GENAD ---
Discharge Plan Disposition Patient Disposition: HOME Condition: Stable Discharge Details Clinical Impression: Headache, Dehydration Primary Care Provider: Derek Lilly ED Provider: Summer Marvin Home Meds and New Rx's Prescriptions: New grmjcvtywq-yhlnuygpzxhqj-gelf 50-325-40 mg capsule 1 cap PO Q6H PRN (Reason: pain) 7 Days Qty: 14 0RF Rx Instructions: Take one tablet every 6 hours as needed for headache, do not take more than 4 tablets in a 24 hour period. Continued multivitamin [Daily Multi-Vitamin] 1 EACH tablet 1 ea PO DAILY omega-3 fatty acids-fish oil 1 EACH capsule 1 ea PO DAILY Qty: 2 amitriptyline 25 MG tablet 50 mg PO HS aspirin [Aspirin Low-Strength] 81 mg tablet,chewable 81 mg PO DAILY estradiol-norethindrone acet 1-0.5 mg tablet See Rx Instructions .ROUTE .COMPLEX Qty: 84 1RF Dose Instruction: TAKE ONE TABLET BY MOUTH EVERY DAY Rx Instructions: TAKE ONE TABLET BY MOUTH EVERY DAY acetaminophen 500 mg tablet 500 mg PO Q6H PRN (Reason: pain) Qty: 60 2RF ibuprofen 600 mg tablet 600 mg PO TID PRN (Reason: pain) Qty: 60 0RF Discharge Instructions Instructions: Dehydration (ED), General Headache (ED) Additional Instructions: Please take zofran medication to 3 times daily as needed for nausea, please take the pain medication as directed. head CT is within normal limits. Labs do not show evidence of dehydration. Also low platelets. Lyme panel is added on which is pending at this time. No evidence of urinary tract infection. Follow up with primary care provider in 3-5 days. Return to ED sooner if any worsening or concerns. Increase oral fluids. Please take Ibuprofen with food every 4-6 hours as needed for pain and swelling. Referrals: Derek Lilly MD [Primary Care Provider] - 3 days Medical Decision Making 57-year-old female presents to the ER with chief complaint of headache, fever, nausea and increased fatigue which began Monday night. Patient reports that she started with a headache Monday night which continued into Monday. She reports that she felt nauseous and has been gagging bilaterally. Denies any diarrhea. She also reports dysuria and decreased urination today. She states that she does have a history of migraines and usually gets 1 a year. She denies any recent head injury denies any blurry vision. She is not taking any medications prior to arrival. CBC, CMP, serial troponins, lipase, urinalysis liter normal saline, Zofran and Toradol ordered. Patient reevaluation, she reports she still has a headache. Sumatriptan 6 mg subcu ordered additional liter normal saline and head CT. Imaging Data Radiologic Study: Imaging: CT Scan Radiologist's impression: TECHNIQUE: Imaging protocol: Computed tomography of the head without contrast. Radiation optimization: All CT scans at this facility use at least one of these dose optimization techniques: automated exposure control; mA and/or kV adjustment per patient size (includes targeted exams where dose is matched to clinical indication); or iterative reconstruction. COMPARISON: US THYROID 09/22/2020 3:07 PM FINDINGS: Brain: No shift, mass, mass effect, or acute hemorrhage. Normal white matter density for age. No subdural collection. No territorial infarction Cerebral ventricles: No unusual ventriculomegaly for age. Pituitary gland and sella: No obvious mass or expansile change. Paranasal sinuses: Visualized sinuses are unremarkable. No fluid levels. Mastoid air cells: Visualized mastoid air cells are well aerated. Orbital cavities: Unremarkable by this method. Bones/joints: Question old right-sided canal wall up mastoidectomy without complicating feature axial image 15. No acute fracture. No destructive lesion. Soft tissues: Unremarkable. Vasculature: Unremarkable. IMPRESSION: No acute intracranial abnormality. HPI General Mode of arrival: ambulatory. Date/Time Provider Initiated Documentation: 05/31/22 17:33. Limitations to Documentation: no limitations. Information obtained by: patient, RN notes reviewed and old records reviewed. HPI Narrative: 57-year-old female presents to the ER with chief complaint of headache, fever, nausea and increased fatigue which began Monday night. Patient reports that she started with a headache Monday night which continued into Monday. She reports that she felt nauseous and has been gagging bilaterally. Denies any diarrhea. She also reports dysuria and decreased urination today. She states that she does have a history of migraines and usually gets 1 a year. She denies any recent head injury denies any blurry vision. She is not taking any medications prior to arrival. Past medical history includes anxiety, tendinitis, impingement syndrome right shoulder, general prolapse and vaginal test here. States here. Related Data Home Medications Medication Instructions Recorded Confirmed multivitamin (Daily Multi-Vitamin 1 ea PO DAILY 08/13/13 03/22/22 tablet) omega-3 fatty acids-fish oil 360 1 ea PO DAILY ##2 08/13/13 03/22/22 mg-1,200 mg capsule amitriptyline 25 mg tablet 50 mg PO HS 08/25/14 03/22/22 acetaminophen 500 mg tablet 500 mg PO Q6H PRN pain #60 tabs 08/18/21 03/22/22 ibuprofen 600 mg tablet 600 mg PO TID PRN pain #60 tabs 08/18/21 03/22/22 aspirin 81 mg chewable tablet 81 mg PO DAILY 09/15/21 03/22/22 (Aspirin Low-Strength) estradiol-norethindrone acet 1 See Rx Instructions .Route 05/06/22 mg-0.5 mg tablet .COMPLEX #84 tabs emsqyskkio-weyumzmcptggb-rwmeitgw 1 cap PO Q6H PRN pain 7 days #14 05/31/22 50 mg-325 mg-40 mg capsule caps Previous Rx's Medication Instructions Recorded acetaminophen 500 mg tablet 500 mg PO Q6H PRN pain #60 tabs 08/18/21 ibuprofen 600 mg tablet 600 mg PO TID PRN pain #60 tabs 08/18/21 estradiol-norethindrone acet 1 See Rx Instructions .Route 05/06/22 mg-0.5 mg tablet .COMPLEX #84 tabs hcgvzygdup-yauyveduzbtmv-jldgcqzx 1 cap PO Q6H PRN pain 7 days #14 05/31/22 50 mg-325 mg-40 mg capsule caps Allergies Allergy/AdvReac Type Severity Reaction Status Date / Time sulfamethoxazole Allergy Intermediate RASH Verified 03/22/22 09:15 [From Bactrim] trimethoprim [From Bactrim] Allergy Intermediate RASH Verified 03/22/22 09:15 lidocaine AdvReac Intermediate Verified 03/22/22 09:15 General Stated Complaint: GenMedical GEGE: 3 Review of Systems All systems reviewed & are unremarkable except as noted in HPI and below Constitutional Constitutional: Reports daytime sleepiness, Reports fatigue, Reports fever(s), Reports headache(s) and Reports poor appetite ENT Ears, Nose, Mouth, and Throat: Reports headache(s) Cardiovascular Cardiovascular: Denies chest pain and Reports dyspnea Respiratory Respiratory: Denies cough, Denies hemoptysis, Denies excessive phlegm production and Reports dyspnea Gastrointestinal Gastrointestinal: Reports as per HPI and Reports nausea Genitourinary Genitourinary: Reports dysuria Neurologic Neurologic: Reports headache(s) Endocrine Endocrine: Reports fatigue PFSH All Active Problems (Updated 05/31/22 @ 21:34 by Summer Marvin NP) Headache (Acute) Dehydration (Acute) Vaginal pessary in situ (Acute) 03/08/22. 76mm Ring with support. Patient is able to remove it and replace it herself. Female genital prolapse (Acute) 02/2022. Stage 3 cystocele and uterine prolapse. Successfully fitted with 76mm ring pessary with support. Pes anserinus bursitis of right knee (Acute) Olecranon bursitis of right elbow (Acute) Chronic neck pain (Acute 08/13/13) Anxiety (Acute 08/13/13) Tendinitis of long head of biceps brachii of right shoulder (Acute) SLAP lesion of right shoulder (Acute) Impingement syndrome of right shoulder (Acute) Malignant hyperthermia (Acute) Susceptible Complete tear of right rotator cuff (Acute ~06/2020) Medical History Family history of malignant hyperthermia History of postoperative nausea and vomiting Surgical History Cautery of R neck nerves 2012 x 2 procedures History of right mastoidectomy Pt reports at Age 1, [facility] Hx of shoulder surgery right Ligation of fallopian tube 1997 Family History Sister Manda-Danlos syndrome Sister Manda-Danlos syndrome Mother Hyperlipidemia Sister Manda-Danlos syndrome Other Diabetes Personal history of malignant neoplasm Social History Smoking/Tobacco Use Status: Former Tobacco Use Quit Date: 10/16/94 Smoking risk assessment performed?: Yes Alcohol Intake: current Alcohol Intake frequency: 0-2 drinks per day Alcohol type: wine Drug use: Never Substance use type: does not use Current gender identity: female Do you feel safe at home: Yes Do you feel safe in your relationship?: Yes History History 4 Para 2 Hx # Term Pregnancies Multiple births Hx # Pregnancies Ectopic pregnancies AB induced Hx Number of Living Children AB spontaneous Exam Narrative Exam Narrative: Constitutional: Alert and oriented x3. Appears stated age. Normal body habitus. Head: Normocephalic, no trauma. Eyes: Pupils PERRL, Red reflex noted, EOM's intact. Eyelids symmetrical without lesions, discharge, or swelling. ENT: Bilateral TM's WNL, External ear normal to inspection, no mastoid TTP, swelling, or erythema, Nasal turbinates WNL, no nasal discharge. Normal dentition, Posterior pharynx WNL, no exudate. Chest: RRR, Normal S1, S2, distal pulses intact. Resp: Lungs clear to auscultation bilaterally, no wheezes, rales, or rhonchi. Abdomen: Soft, non-distended, Normoactive bowel sounds all 4 quads. Musculoskeletal: Normal gait, 5/5 strength to all four extremities. Skin: No suspicious rashes or lesions. Capillary refill less than 2 sec. Neurologic: Cranial nerves II-XII intact. Alert and oriented x 3. Motor: No deficits noted. Sensory: Intact bilaterally all 4 extremities. Reflexes: DTR's intact bilaterally.. Hematologic/Lymphatic: No ecchymosis, no lymphadenopathy. Course Vital Signs Vital signs: Vital Signs Temperature 37.1 C 05/31/22 17:47 Pulse 70 05/31/22 17:47 Respiratory Rate 18 05/31/22 17:47 Blood Pressure 128/87 05/31/22 17:47 Pulse Oximetry 99 05/31/22 17:47 Temperature 37.1 C 05/31/22 17:47 Temperature Source Temporal Artery Scan 05/31/22 17:47 Pulse 70 05/31/22 17:47 Respiratory Rate 18 05/31/22 17:47 Respiratory Effort Non-Labored 05/31/22 17:52 Blood Pressure 128/87 05/31/22 17:47 Pulse Oximetry 99 05/31/22 17:47 Oxygen Delivery Method Room Air 05/31/22 17:47 Oxygen Flow Rate 0 05/31/22 17:47 Pain Level 4 05/31/22 17:47
[2022-05-31] MEDS: Normal Saline 1,000 ML 1000 ML IV ×2 (18:30→19:31)
[2022-05-31 18:32] LABS: Source Nasal/Nares
[2022-05-31 18:32] LABS: Abs Immature Grans 0.01 10^3/uL (0.0-0.06); Absolute Basophil Count 0.02 10^3/uL (0.0-0.2); Absolute Lymphocyte Count 0.34 10^3/uL (1.2-3.4); Absolute Monocyte Count 0.33 10^3/uL (0.1-0.8); Absolute Neutrophil Count 3.36 10^3/uL (1.2-6.7); Basophils % 0.5; HCT 41.9 % (36.0-46.0); HGB 14.7 g/dL (11.2-15.7); Immature Grans % 0.2; Lymphocytes % 8.4; MCH 31.5 pg (27.0-33.0); MCHC 35.1 % (32.0-36.0); MCV 90 fL (80-95); MPV 9.7 fL (8.0-11.0); Monocytes % 8.1; Neutrophils % 82.8; Platelet Count 124 10^3/uL (130-400); RBC 4.66 10^6/uL (3.93-5.22); RDW 12.9 % (11.7-14.6); RDW-SD 42.5 fL; WBC 4.06 10^3/uL (4.4-10.8)
[2022-05-31] MEDS: diphenhydrAMINE 50 MG/ML VIAL 25 MG IVP (18:45)
[2022-05-31] MEDS: Prochlorperazine 10 MG/2 ML VIAL 5 MG IVP (18:45)
[2022-05-31] MEDS: Ketorolac 15 MG/ML VIAL IVP (18:45)
[2022-05-31 18:47] LABS: ALT 78 U/L (14-59); AST 51 U/L (15-37); Albumin 3.7 g/dL (3.4-5.0); Alkaline Phosphatase 60 U/L (46-116); BUN 19 mg/dL (7-18); Bilirubin, Total 0.4 mg/dL (0.2-1.0); CREATININE 0.6 mg/dL (0.55-1.02); Calcium 8.9 mg/dL (8.5-10.1); Chloride 99 mmol/L (98-107); Glucose 117 mg/dL (74-106); Lipase 110 U/L (73-393); Magnesium 1.9 mg/dL (1.8-2.4); Potassium 3.8 mmol/L (3.5-5.1); Sodium 137 mmol/L (136-145); Total Protein 7.4 g/dL (6.4-8.2); Troponin I < 50 ng/L (<or=60)
[2022-05-31 19:02] LABS: COVID-19 PCR Negative (Negative)
--- NOTE | 2022-05-31 19:15 | DI.CT_ITS ---
Exam(s) CT HEAD WO EXAM: CT HEAD WO CLINICAL HISTORY: Headache. TECHNIQUE: Imaging Protocol: Axial computed tomography images with coronal and sagittal reformatted images were created and reviewed COMPARISON: No exams were available for comparison FINDINGS: The ventricular system is normal in appearance. No evidence of acute intracranial hemorrhage, mass effect, or midline shift. The orbital structures are unremarkable. The temporal bone structures appear intact. Calvarium: Normal. Visualized Paranasal sinuses/Mastoids: Clear. IMPRESSION: Normal cranial CT. RADIATION DOSE DELIVERED: 797.85mGy.cm Total DLP 797.85mGy.cm Total DLP !Error CTDIvol DATA REPOSITORY: All CT scans at this facility are submitted to the National Radiology Data Registry (NRDR) Dose Index Registry (DIR) with the [employer] (ACR). RADIATION OPTIMIZATION: All CT scans at this facility use at least one of these dose optimization te chniques: automated exposure control; mA and/or kV adjustment per patient size (includes targeted exa ms where dose is matched to clinical indication); or iterative reconstruction.
--- NOTE | 2022-05-31 20:12 | DI.VRAD_ITS ---
PROCEDURE INFORMATION: Exam: CT Head Without Contrast Exam date and time: 05/31/2022 7:49 PM Age: 57 years old Clinical indication: Other: Headache; Additional info: Headache on upper right eye since Monday TECHNIQUE: Imaging protocol: Computed tomography of the head without contrast. Radiation optimization: All CT scans at this facility use at least one of these dose optimization techniques: automated exposure control; mA and/or kV adjustment per patient size (includes targeted exams where dose is matched to clinical indication); or iterative reconstruction. COMPARISON: US THYROID 09/22/2020 3:07 PM FINDINGS: Brain: No shift, mass, mass effect, or acute hemorrhage. Normal white matter density for age. No subdural collection. No territorial infarction Cerebral ventricles: No unusual ventriculomegaly for age. Pituitary gland and sella: No obvious mass or expansile change. Paranasal sinuses: Visualized sinuses are unremarkable. No fluid levels. Mastoid air cells: Visualized mastoid air cells are well aerated. Orbital cavities: Unremarkable by this method. Bones/joints: Question old right-sided canal wall up mastoidectomy without complicating feature axial image 15. No acute fracture. No destructive lesion. Soft tissues: Unremarkable. Vasculature: Unremarkable. IMPRESSION: No acute intracranial abnormality. Dictated and Authenticated by: Prieto Maldonado MD. Ordering:SUMAN Wheeler MD
[2022-05-31] MEDS: SUMAtriptan 6 MG/0.5 ML VIAL SC (20:54)
[2022-05-31 21:02] LABS: Bilirubin Small (Negative); Blood Trace-intact (Negative); Clarity Clear (Clear); Glucose Negative (Negative); Ketones >=160 mg/dL (Negative); Leukocyte Esterase Negative (Negative); Nitrite Negative (Negative); Specific Gravity >= 1.030 (1.005-1.025); Urobilinogen 0.2 EU/dL (Up TO 0.2); pH 6.5 (5-8)
[2022-05-31 21:38] LABS: Bacteria Negative HPF (Negative); C & S Indicated? No; Casts Negative LPF (Negative); Crystals Negative HPF (Negative); Epithelial Cells Moderate HPF (Negative); Mucus Negative (Negative); Other Cells Negative (Negative); RBC 0-2 HPF (0-2); WBC 0-2 HPF (0-5)
[2022-05-31] MEDS: Ondansetron O.D.T. 4 MG TABEF, 3 TABS/BTL PO (21:45)
[2022-06-02 10:31] LABS: Lyme Ab w Rflx to Lyme Confirm Negative (Negative)
[2022-06-03 20:24] LABS: Anaplasma phagocytophilum Negative (Negative); B. miyamotoi PCR Negative (Negative); Babesia divergens/MO-1 Negative (Negative); Babesia duncani Negative (Negative); Babesia microti Negative (Negative); Ehrlichia chaffeensis Negative (Negative); Ehrlichia ewingii/canis Negative (Negative); Ehrlichia muris eauclairensis Negative (Negative)
== END 2022-05-31 21:47 | disposition home or self-care (01) ==
PROVIDERS: Emergency Provider Registered Nurse Emergency; PCP Internal Medicine
DX: R51.9 Headache, unspecified (principal); E86.0 Dehydration; R50.9 Fever, unspecified; R53.83 Other fatigue; R11.0 Nausea; R30.0 Dysuria; Z87.891 Personal history of nicotine dependence; Z20.822 Contact with and (suspected) exposure to COVID-19
CPT/HCPCS: 36415; 80053; 83690; 87635; 87798; 93005; 96361; 96372; 96374; 96375; 99284; 70450; 81003; 81015; 83735; 84484; 85025; 86618; 93010; 99285; J0780; J1200; J1885

== ENCOUNTER 2022-06-22 17:58 | Outpatient (REF) | payer MEDICAID, SELFPAY ==
[2022-06-22 21:21] LABS: Abs Immature Grans 0.01 10^3/uL (0.0-0.06); Absolute Basophil Count 0.02 10^3/uL (0.0-0.2); Absolute Eosinophil Count 0.06 10^3/uL (0.0-0.7); Absolute Lymphocyte Count 1.23 10^3/uL (1.2-3.4); Absolute Monocyte Count 0.52 10^3/uL (0.1-0.8); Absolute Neutrophil Count 1.64 10^3/uL (1.2-6.7); Basophils % 0.6; Eosinophils % 1.7; HCT 37.3 % (36.0-46.0); HGB 12.6 g/dL (11.2-15.7); Immature Grans % 0.3; Lymphocytes % 35.3; MCHC 33.8 % (32.0-36.0); MCV 92 fL (80-95); MPV 10.5 fL (8.0-11.0); Monocytes % 14.9; Neutrophils % 47.2; Platelet Count 196 10^3/uL (130-400); RBC 4.07 10^6/uL (3.93-5.22); RDW 13.2 % (11.7-14.6); RDW-SD 44.4 fL; WBC 3.48 10^3/uL (4.4-10.8)
[2022-06-22 21:28] LABS: ALT 48 U/L (14-59); AST 30 U/L (15-37); Albumin 3.9 g/dL (3.4-5.0); Alkaline Phosphatase 62 U/L (46-116); BUN 12 mg/dL (7-18); Bilirubin, Total 0.2 mg/dL (0.2-1.0); CREATININE 0.8 mg/dL (0.55-1.02); Calcium 9.2 mg/dL (8.5-10.1); Chloride 102 mmol/L (98-107); Estimated GFR 84.82 (mL/min/1.73m2); Glucose 92 mg/dL (74-106); Potassium 3.9 mmol/L (3.5-5.1); Sodium 139 mmol/L (136-145); TSH (W/Ref FT4) 2.39 uIU/mL (0.36-3.74); Total Protein 7.1 g/dL (6.4-8.2)
[2022-06-22 22:05] LABS: ESR 10 mm/hr (0-30)
== END 2022-06-22 17:59 | disposition home or self-care (01) ==
LOC: NCHCN 17:58
PROVIDERS: PCP Internal Medicine; Visit Provider Family Medicine
DX: R50.9 Fever, unspecified (principal); R79.1 Abnormal coagulation profile
CPT/HCPCS: 80053; 85652; 84443; 85025

== ENCOUNTER 2023-05-02 00:57 | Outpatient (CLI) | payer BC, MEDICAID, SELFPAY ==
--- NOTE | 2023-05-02 07:45 | DI.MAMMO_ITS ---
Exam(s) MAMMO SCREENING EXAM: MAMMO SCREENING CLINICAL HISTORY: screening,z12.39 TECHNIQUE: Bilateral full field digital CC and MLO mammographic images were obtained with 3D tomosyn thesis and utilizing computer aided detection (CAD). COMPARISON: Available for comparison. FINDINGS: Masses/Architectural Distortion: None seen. Microcalcifications: No suspicious pleomorphic-type are seen. Skin Thickening/Nipple Retraction: None. IMPRESSION: 1. No significant interval change with no specific features of malignancy noted. 2. Unless there is more urgent need, screening mammography is recommended, as per [employer] guidelines. BI-RADS Category 1 - Negative Breast Density - Category C - Heterogeneously dense Breast density category C or D implies that the patient has dense breast tissue. Dense breast tissue is very common and is not abnormal but dense breast tissue can make it harder to find cancer on a ma mmogram. Also, dense breast tissue may increase their breast cancer risk. This information about the result of the mammogram report was provided to the patient to raise their awareness. Use this report when you speak with the patient about their risks for breast cancer, which includes their family hist ory. At that time, you may recommend for more screening tests (Ultrasound or MRI) as they might be us eful based on their risk. A negative radiographic report should not delay biopsy if a dominant or clinically suspicious mass is present. Up to ten percent of cancers are not identified on mammography. A negative report may reinforce clinical impression. Adenosis and dense breasts may obscure an underlying neoplasm. False positive reports average 6 to 10%. Patient will receive a letter notifying them of these results.
== END 2023-05-02 01:17 ==
PROVIDERS: PCP Internal Medicine; Visit Provider Obstetrics & Gynecology Gynecology
DX: Z12.31 Encounter for screening mammogram for malignant neoplasm of breast (principal)
CPT/HCPCS: 77063; 77067

== ENCOUNTER 2024-05-24 10:05 | Day surgery (SDC) | payer BC, SELFPAY ==
--- NOTE | 2024-05-23 20:45 | COLE_ITS ---
Date of service: 05/24/24 Time of Service: 13:00 Colonoscopy Report Date of procedure: 05/24/24 Pre-op diagnosis general: crc screening Surgeon: Lara Woo Anesthesia Type: General:No Airway Complications: None Disposition: same day Prep: Miralax/Dulcolax Retraction Time: 10 Procedure Description: After informed consent was obtained, explaining risks of the procedure, including but not limits to: bleeding, infections, complications of anesthesia, perforations (which may require antibiotics and /or surgery and stay in the hospital), and abdominal pain/cramping. The patient was taken to the procedure room and placed in a left decubitous position. Monitors were applied and a time out was done. The patients name, date of , procedure, allergies to medications and metal in their body was reviewed. The patient was then sedated. Once sedated and comfortable a rectal exam was done. External exam was normal. Internal exam revealed a normal sphincter tone and no palpable masses. The previously lubricated Olympus scope was then introduced (see RN notes for scope number) and retrofelexed. No internal hemorrhoids were identified. The scope was then advanced to the cecum without difficulty. The TI and appendiceal orifice were identified. The scope was then slowly retracted over minutes back into the rectum. Polyps: None. Diverticula: pt had a small amount of small mouthed diverticula in the sigmoid colon. There were no signs of active bleeding or infection. . The mucosa is pink and healthy w/ a normal vascular pattern. The scope was removed, and the patient was woken up and taken back to Same day surgery in stable condition. The patient tolerated the procedure well and there were no immediate complications. Follow up: The patient should follow up in 10 years, unless they develop changes in bowel habits or other new gastrointestinal complaints. Otterbein Bowel Prep Otterbein Bowel Prep Right Colon: 3 Left Colon: 3 Transverse Colon: 3 Total Score: 9
--- NOTE | 2024-05-23 20:47 | PDOC.DSDIS_ITS ---
Date of service: 05/24/24 Time of Service: 12:41 Discharge Plan Disposition Patient Disposition: Home Discharge Details Reason For Visit: colon scope Attending Provider: Lara Woo Primary Care Provider: Derek Lilly Home Meds and New Rx's Prescriptions: Continued estradiol-norethindrone acet 1-0.5 mg tablet 1 tab PO DAILY Rx Instructions: pt reports takin every other day multivitamin [Daily Multi-Vitamin] 1 EACH tablet 1 ea PO DAILY omega-3 fatty acids-fish oil 1 EACH capsule 1 ea PO DAILY Qty: 2 aspirin [Aspirin Low-Strength] 81 mg tablet,chewable 81 mg PO DAILY amitriptyline 25 mg tablet 75 mg PO HS acetaminophen 500 mg tablet 500 mg PO Q6H PRN (Reason: pain) Qty: 60 2RF ibuprofen 600 mg tablet 600 mg PO TID PRN (Reason: pain) Qty: 60 0RF Discontinued bisacodyl [Dulcolax (bisacodyl)] 5 mg tablet,delayed release (DR/EC) 5 mg PO ONCE Qty: 4 0RF Rx Instructions: Take per colonoscopy instructions provided by ordering providers office polyethylene glycol 3350 17 gram/dose powder 17 g PO ONCE Qty: 238 0RF Rx Instructions: Take per colonoscopy instructions provided by ordering providers office Discharge Instructions Additional Instructions: DSU Colonoscopy Post- Op Instructions Instructions for Everyone who is given Anesthesia: For your safety, please do the following for the next twenty-four (24) hours: *Do Not operate a motor vehicle (car, truck, motorcycle, etc.) *Do Not drink alcoholic beverages or use any recreational drugs for the first 24 hours or while taking pain medications. The medications in your body may have a reaction that can be dangerous. *Do Not make any important decisions or sign any important papers. Findings: minor divertiucla. Sure you are moving your bowels on a regular basis and avoid straining. If you have problems with constipation/straining, that is recommended you start a fiber product daily such as psyllium capsules 2-4 a day Follow up: Repeat colonoscopy in 10 years time 1. No lifting over 20 pounds or strenuous activity for the first 24 hours after your procedure. After 24 hours there are no restrictions on your activity but you may feel fatigued for a few days. 2. After you arrive home you may have a light meal and return to your normal diet as you can tolerate it without feeling sick to your stomach. 3. You may have a bloated, gaseous feeling in your belly (abdomen) after a colonoscopy. Passing gas and belching will help. Walking or lying down on your left side with your knees flexed may relieve the discomfort. Call the office at [phone] (Office) or [phone] (Hospital) right away if you notice any of the following: a.Vomiting of blood or ?coffee ground stools?. b.Rectal bleeding 1Tbsp, blood clots or continuous bleeding. c.Severe belly (abdominal) pain. d.A hard distended belly (abdomen) and an inability to pass gas. 4. Please don?t expect to have a normal BM (bowel movement) for 2-3 days after your procedure. 5. If there are questions regarding the findings of your procedure, please c ontact your doctor 6. If you are unable to contact your doctor with a problem, contact the hospital at [phone]. 7. Continue all your regular medications unless directed otherwise. I understand the above instructions and have no questions. Signature of Patient or Adult Escort Name of Responsible Adult Escort Signature of Nurse Date/Time Stand Alone Forms: Anesthesia Discharge Inst., Pancho Mendoza ([facility]) Activity:: see above Diet:: see above Discharge Orders Discharge Orders: Discharge Order (Routine); Ordered 05/24/24 Ordered By: Lara Woo DS: Diagnosis Discharge Diagnosis (1) Malignant hyperthermia: Status: Acute (2) Female genital prolapse: Status: Acute (3) Urinary incontinence concurrent with and due to female genital prolapse: Status: Acute (4) History of postoperative nausea and vomiting: (5) Family history of malignant hyperthermia: (6) Vaginal pessary in situ:
[2024-05-24 10:31] VITALS: BP 133/86; PULSE 79; RESP 16; TEMP 36.1; O2SAT 99
[2024-05-24] MEDS: Lactated Ringers 1,000 ML 80 ML IV (10:46)
--- NOTE | 2024-05-24 10:55 | ANES.PREOP_ITS ---
General Info Date of Service Date Performed: 05/24/24 Height: 5 ft 7 in Weight: 68.5 kg Body Mass Index (BMI): 23.6 Surgical Procedure: Operation Date: 05/24/24 10:50 Proposed Procedure Side Surgeon aparna Woo, DO Meds Allergies and Home Medications Allergies Allergy/AdvReac Type Severity Reaction Status Date / Time sulfamethoxazole (From Allergy Intermediate RASH Verified 05/24/24 10:38 Bactrim) trimethoprim (From Bactrim) Allergy Intermediate RASH Verified 05/24/24 10:38 lidocaine AdvReac Intermediate Other (See Verified 05/24/24 10:38 Comment) Home Medication ?Medication ?Instructions ?Recorded multivitamin (Daily Multi-Vitamin 1 ea PO DAILY 08/13/13 tablet) omega-3 fatty acids-fish oil 360 1 ea PO DAILY ##2 08/13/13 mg-1,200 mg capsule acetaminophen 500 mg tablet 500 mg PO Q6H PRN pain #60 tabs 08/18/21 ibuprofen 600 mg tablet 600 mg PO TID PRN pain #60 tabs 08/18/21 aspirin 81 mg chewable tablet 81 mg PO DAILY 09/15/21 (Aspirin Low-Strength) amitriptyline 25 mg tablet 75 mg PO HS 04/21/23 bisacodyl 5 mg tablet,delayed 5 mg PO ONCE #4 tabs 05/09/24 release (Dulcolax (bisacodyl)) estradiol-norethindrone acet 1 1 tab PO DAILY 05/09/24 mg-0.5 mg tablet polyethylene glycol 3350 17 17 g PO ONCE #238 grams 05/09/24 gram/dose oral powder Current Visit Medications: Current Medications Generic Name Dose Route Start Last Admin Trade Name Freq PRN Reason Stop Dose Admin Hyoscyamine Sulfate 0.125 mg 05/24/24 06:00 Hyoscyamine 0.125 Mg Sl/Oral/Chew SL 05/24/24 16:00 DIRECTED PRN Ringer's Solution 1,000 mls @ 80 mls/hr 05/24/24 06:00 05/24/24 10:46 IV 06/22/24 23:59 80 mls/hr INFUSION ELIEL Administration IV Miscellaneous Supplies 1 each 05/24/24 06:00 Iv Access IV 06/22/24 23:59 DIRECTED ELIEL Ondansetron HCl 4 mg 05/24/24 06:00 Ondansetron 4 Mg/2 Ml Vial IVP 05/24/24 16:00 Q4H PRN PRN Nausea / Vomiting Sodium Chloride 0 ml 05/24/24 06:00 Normal Saline Flush 10 Ml Syr IV 06/22/24 23:59 PRN PRN Sodium Chloride 0 ml 05/24/24 06:00 Normal Saline 10 Ml Vial IJ 06/22/24 23:59 DIRECTED PRN Sterile Water 0 ml 05/24/24 06:00 Water,Injection,Sterile 10 Ml Vial IJ 06/22/24 23:59 DIRECTED PRN PFSH Active Problems Active Problems: Problem Status Onset Code Urinary incontinence concurrent with and due to female genital prolapse Acute N81.9, R32 Menopause syndrome Acute N95.1 Female genital prolapse Acute N81.9 Pes anserinus bursitis of right knee Acute M70.51 Olecranon bursitis of right elbow Acute M70.21 Complete tear of right rotator cuff Acute ~06/2020 M75.121 Malignant hyperthermia Acute T88.3XXA Impingement syndrome of right shoulder Acute M75.41 SLAP lesion of right shoulder Acute S43.431A Tendinitis of long head of biceps brachii of right shoulder Acute M75.21 Anxiety Acute 08/13/13 F41.9 Chronic neck pain Acute 08/13/13 M54.2, G89.29 Medical History Medical History Vaginal pessary in situ 03/08/22. 76mm Ring with support. Patient is able to remove it and replace it herself. 04/2023. removed after 5mo 2/2 worsening incontinence with pessary in place. Family history of malignant hyperthermia Per pt. states it is nephew (sisters son) History of postoperative nausea and vomiting Surgical History Surgical History Hx of shoulder surgery right History of right mastoidectomy Pt reports at Age 1, [facility] Ligation of fallopian tube 1998 Cautery of R neck nerves 2012 x 2 procedures Tobacco Smoking/Tobacco Use Status: Former Tobacco Use Alcohol Alcohol Intake: current Alcohol intake frequency: 0-2 drinks per day Alcohol type: wine Substance Use Substance use: Never Substance use type: does not use Prental History History 4 Para 2 Hx # Term Pregnancies Multiple births Hx # Pregnancies Ectopic pregnancies AB induced Hx Number of Living Children AB spontaneous Vital Signs and Lab Results Vital Signs Most Recent Vital Signs in EMR: Most Recent Vital Signs Temp Pulse Resp BP Pulse Ox 36.1 C L 79 16 133/86 99 05/24/24 10:31 05/24/24 10:31 05/24/24 10:31 05/24/24 10:31 05/24/24 10:31 Lab Results Blood Type / Crossmatch: No Data to Display Complete Blood Count: No Data to Display Complete Metabolic Panel: No Data to Display Liver Function Panel: No Data to Display Coagulation Panel: No Data to Display Cardiac Panel: No Data to Display Arterial Blood Gas: No Data to Display Venous Blood Gas: No Data to Display Pancreas Panel: No Data to Display Thyroid Panel: No Data to Display Infectious Disease: No Data to Display Blood Cultures: No Data to Display Toxicology Panel: No Data to Display Imaging and Studies Imaging and Studies Study information below may be from another EMR and interpreted by another provider. Please see original notes in EMR for more complete details. EKG Summary: 09/12/20: Conclusion Sinus rhythm...normal P axis, V-rate 60- 99 Ventricular premature complex...V complex w/ short R-R interval Nonspecific intraventricular conduction delay...QRSd >115mS, not LBBB/RBBB I have reviewed and interpreted ECG and agree with software generated interpretation. Anesthesia Assessment and Plan Anesthesia History Personal History: PONV and Delayed Emergence Family History: Malignant Hyperthermia Exercise Tolerance Exercise Tolerance: Metabolic Equivalents>4 Pertinent Negatives Pertinent Negatives: No Symptoms of GERD Cardiac & Pulmonary Exam Cardiac Exam: Normal S1/S2 Heart Sounds Pulmonary Exam: Clear Bilateral Breath Sounds Implantable Cardiac Device Does patient have a Pacemaker or an ICD?: No Airway Exam Known Difficult Airway: No Mallampati Class: 1 Mouth Opening: Normal (> 3cm) Thyromental Distance: Greater than 3 cm Neck Range of Motion: Full ROM Neck Circumference: Normal Teeth Condition: Normal Dentition ASA Classification ASA Score: ASA 2 Emergency Case?: No NPO Status NPO Status: NPO Clears >2 hours, Solids >8 hours Anesthesia Plan Resuscitation Status: Full Code Anesthesia Technique: General Anesthesia Airway Planned: Natural Airway Monitors Used: Standard Monitors
[2024-05-24 10:56] VITALS: BMI 23.6
[2024-05-24 12:00] VITALS: BP 121/87; PULSE 72; RESP 16; TEMP 36; O2SAT 99
--- NOTE | 2024-05-24 12:18 | W.ANESPOSTOP ---
Postoperative Evaluation Date, Time and Location Date Performed: 05/24/24 Time Performed: 12:18 Patient Location: Day Surgery Unit Vital Signs Most Recent Imported Vital Signs: Most Recent Vital Signs Temp Pulse Resp BP Pulse Ox 36 C L 72 16 121/87 99 05/24/24 12:00 05/24/24 12:00 05/24/24 12:00 05/24/24 12:00 05/24/24 12:00 Pain Score Most Recent Pain Score: Most Recent Pain Score Pain Level 0 05/24/24 12:00 Assessment Mental Status: Awake (Alert & Oriented to Patient Baseline) Airway and Respiratory Function: Patent airway with normal (patient baseline) respiratory exam Cardiovascular Function: Hemodynamically Stable Hydration Status: Adequately Hydrated Nausea & Vomiting: No Nausea or Vomiting Pain: Pt. Denies Any Pain Peripheral Nerve Block: Patient did not receive a nerve block
[2024-05-24 12:20] VITALS: BP 107/81; PULSE 67; RESP 16; TEMP 36.1; O2SAT 99
== END 2024-05-24 13:11 | disposition home or self-care (01) ==
PROVIDERS: PCP Internal Medicine; Visit Provider Surgery
PROC: 0DJD8ZZ Inspection of Lower Intestinal Tract, Via Natural or Artificial Opening Endoscopic (ICD-10-PCS; CPT 45378; principal; 2024-05-24 10:45)
DX: Z12.11 Encounter for screening for malignant neoplasm of colon; K57.30 Diverticulosis of large intestine without perforation or abscess without bleeding
CPT/HCPCS: 45378; J2704

== ENCOUNTER 2024-07-19 08:06 | Emergency (ER) | payer BC, SELFPAY ==
[2024-07-19 08:09] VITALS: BP 128/83; PULSE 83; RESP 18; TEMP 36.4; O2SAT 99
--- NOTE | 2024-07-19 08:16 | ED.GENADUL_ITS ---
Discharge Plan Disposition Patient Disposition: Home Condition: Stable Discharge Details Clinical Impression: Laceration of right forearm Primary Care Provider: Derek Lilly ED Provider: David Abad Home Meds and New Rx's Prescriptions: Continued estradiol-norethindrone acet 1-0.5 mg tablet 1 tab PO DAILY Rx Instructions: pt reports takin every other day multivitamin [Daily Multi-Vitamin] 1 EACH tablet 1 ea PO DAILY omega-3 fatty acids-fish oil 1 EACH capsule 1 ea PO DAILY Qty: 2 aspirin [Aspirin Low-Strength] 81 mg tablet,chewable 81 mg PO DAILY amitriptyline 25 mg tablet 50 mg PO HS acetaminophen 500 mg tablet 500 mg PO Q6H PRN (Reason: pain) Qty: 60 2RF ibuprofen 600 mg tablet 600 mg PO TID PRN (Reason: pain) Qty: 60 0RF Discharge Instructions Instructions: Taking care of cuts, scrapes, and puncture wounds Additional Instructions: You were seen in the emergency department for the laceration to your right forearm after a fall down some stairs. You appear to have no other injury. We repaired your wound with Steri-Strips and approximated well, it is covered with a Tegaderm which you can leave on throughout the day to prevent infection from the wound getting dirty while at work. Please wrap with a gentle pressure dressing, please use therapeutic dosing of Tylenol (acetamenophen) & Advil (ibuprofen) in an alternating fashion as follows: Take 1000mg of Tylenol every 6 hours without missing doses- that is 4 times per day. Half-Way in between the Tylenol dosings, take 400-600mg of Advil also on a 6 hour schedule, that is also 4 times per day. The daily maximum dosing of Tylenol is 4000mg, and the daily maximum dosing of Advil is 2400mg. This is safe to do for weeks. Please note that some common cold medications & prescription pain medications may contain acetamenophen and you need to read OTC drug labels and factor that in to maximum daily dosings. Your tetanus is up-to-date, your x-ray was negative for fracture. Please return for signs of wound infection including redness, increasing swelling, drainage of pus from the area, fever, red streaking up the arm. Referrals: Derek Lilly MD [Primary Care Provider] - [facility] General Date/Time Provider Initiated Documentation: 07/19/24 08:09 . HPI Narrative: 59 year-old female presents to ED today by POV/ambulating with a chief complaint of fall down a flight of stairs, with laceration to her R forearm with onset around 0545 this morning. Patient is R-hand dominant. Quality described as pain in R forearm, minor pains elsewhere, no radiation to headstrike, LOC, neck pain, midline back pain, abdominal pain, leg pain. Severity is described as severe. Palliating factors include put butterfly dressings on it. Provoking factors include movement, touch. Events leading up to the incident/Associated Symptoms: Patient states she is allergic to lidocaine, tolerates novacaine at dentist. Patient not anticoagulated. Related Data Home Medications ?Medication ?Instructions ?Recorded ?Confirmed multivitamin (Daily Multi-Vitamin 1 ea PO DAILY 08/13/13 07/19/24 tablet) omega-3 fatty acids-fish oil 360 1 ea PO DAILY ##2 08/13/13 07/19/24 mg-1,200 mg capsule acetaminophen 500 mg tablet 500 mg PO Q6H PRN pain #60 tabs 08/18/21 07/19/24 ibuprofen 600 mg tablet 600 mg PO TID PRN pain #60 tabs 08/18/21 07/19/24 aspirin 81 mg chewable tablet 81 mg PO DAILY 09/15/21 07/19/24 (Aspirin Low-Strength) amitriptyline 25 mg tablet 50 mg PO HS 04/21/23 07/19/24 estradiol-norethindrone acet 1 1 tab PO DAILY 05/09/24 07/19/24 mg-0.5 mg tablet Previous Rx's ?Medication ?Instructions ?Recorded acetaminophen 500 mg tablet 500 mg PO Q6H PRN pain #60 tabs 08/18/21 ibuprofen 600 mg tablet 600 mg PO TID PRN pain #60 tabs 08/18/21 Allergies Allergy/AdvReac Type Severity Reaction Status Date / Time sulfamethoxazole (From Allergy Intermediate RASH Verified 07/19/24 08:12 Bactrim) trimethoprim (From Bactrim) Allergy Intermediate RASH Verified 07/19/24 08:12 lidocaine AdvReac Intermediate Other (See Verified 07/19/24 08:12 Comment) General Stated Complaint: Laceration GEGE: 3 Review of Systems All systems reviewed & are unremarkable except as noted in HPI and below Exam Narrative Exam Narrative: GENERAL APPEARANCE: Well-nourished, non-toxic, awake and alert, atraumatic, no acute distress. SKIN: Warm, pink, dry, 2x1cm L shaped laceration to R forearm, no active bleeding HEAD: Normocephalic, atraumatic, normal hair distribution for gender/age. EYES: Normal conjunctiva, no exudates on lids/lashes. ENT: Nares patent, no circumoral cyanosis, no facial swelling NECK: Supple, trachea midline, painless cervical ROM. LUNGS/CHEST: Non-labored respirations, normal A/P diameter, symmetrical expansion, no chest wall deformity HEART (CV/PV): Regular rate, R radial pulse 2+, no peripheral edema, no JVD. ABDOMEN: Soft, non-distended, no guarding. MSK: Normal ROM, no swelling/deformity to bilateral UEs or LEs, moving all extremities without weakness, no cyanosis, spine midline without tenderness, normal curvature. NEURO: Mental Status AAOx4 - alert to person, place, time, events No facial droop, no forehead involvement. Motor: No focal weakness - strength 5/5 in bilateral UEs and LEs, proximal and distal, symmetric. Sensory: sensation intact to light touch globally. Gait normal: patient ambulated without ataxia into ED room. PSYCH: euthymic, cooperative, pleasant, appropriate speech Course Vital Signs Vital signs: Vital Signs Temperature 36.4 C 07/19/24 08:09 Pulse 83 07/19/24 08:09 Respiratory Rate 18 07/19/24 08:09 Blood Pressure 128/83 07/19/24 08:09 Pulse Oximetry 99 07/19/24 08:09 Temperature 36.4 C 07/19/24 08:09 Temperature Source Temporal Artery Scan 07/19/24 08:09 Pulse 83 07/19/24 08:09 Respiratory Rate 18 07/19/24 08:09 Respiratory Effort Normal, Non-Labored 07/19/24 08:14 Blood Pressure 128/83 07/19/24 08:09 Blood Pressure Position Sitting 07/19/24 08:09 Pulse Oximetry 99 07/19/24 08:09 Oxygen Delivery Method Room Air 07/19/24 08:09 Oxygen Flow Rate 0 07/19/24 08:09 Medical Decision Making This dictation utilizes [id number] dictation software and may contain unedited grammatical errors. 59 year-old female presents to ED today by POV/ambulating with a chief complaint of fall down a flight of stairs, with laceration to her R forearm with onset around 0545 this morning. Patient is R-hand dominant. Quality described as pain in R forearm, minor pains elsewhere, no radiation to headstrike, LOC, neck pain, midline back pain, abdominal pain, leg pain. Severity is described as severe. Palliating factors include put butterfly dressings on it. Provoking factors include movement, touch. Events leading up to the incident/Associated Symptoms: Patient states she is allergic to lidocaine, tolerates novacaine at dentist. Patients' medical history: Tdap up-to-date 2021, otherwise noncontributory. Family and social history: Noncontributory. 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 Differential / pathologies of concern include laceration, contusion, fracture. Diagnostic studies of: -XR R Forearm - no acute fracture seen. Interventions of: -Steri-strip repair. ED Course/Assessment/Plan: 59-year-old female who is right-hand dominant fell down a flight of stairs while getting ready for work, she hit a piece of furniture with her right forearm causing a laceration that was repaired by Steri-Strips. X-rays negative for fracture, tetanus up-to-date, counseled on wound care, strict return for signs of infection. Findings not consistent with fracture, NV compromise. Disposition of Laceration of Right Forearm. Patient verbalized understanding of the plan and return to ED criteria and engaged in shared decision making. Medical Records Medical records reviewed: Yes I reviewed the patient's medical records. Imaging Data Radiologic Study: Attestation: I personally reviewed and interpreted this imaging study as follows: Imaging: X-Ray Radiologist's impression: EXAM: XR FOREARM RT CLINICAL HISTORY: laceration mid-shaft, pain. TECHNIQUE: 2D digital imaging was performed. Two views. COMPARISON: No exams were available for comparison FINDINGS: BONES: No acute fracture is present. No bony destructive lesion is seen. Visualized portion of elbow and wrist joints are unremarkable. SOFT TISSUE: Small amount of soft tissue air visible dorsally in the mid forearm. No foreign body. IMPRESSION: Soft tissue laceration. Quality:SDOH Health Related Social Needs: No Data to Display PFSH All Active Problems (Updated 07/19/24 @ 09:17 by RUBEN Carpenter) Laceration of right forearm (Acute) Urinary incontinence concurrent with and due to female genital prolapse (Acute) 2021. Stage 3 cystocele. Worse bladder sx with pessary in place. Daily urine loss. Menopause syndrome (Acute) 04/2019. HRT for sx. Female genital prolapse (Acute) 02/2022. Stage 3 cystocele and uterine prolapse. Successfully fitted with 76mm ring pessary with support. 04/2023. Prolapse sx are tolerable with pessary out. It was removed 2/2 exacerbating urinary incontinence Pes anserinus bursitis of right knee (Acute) Olecranon bursitis of right elbow (Acute) Complete tear of right rotator cuff (Acute ~06/2020) Malignant hyperthermia (Acute) Susceptible Impingement syndrome of right shoulder (Acute) SLAP lesion of right shoulder (Acute) Tendinitis of long head of biceps brachii of right shoulder (Acute) Anxiety (Acute 08/13/13) Chronic neck pain (Acute 08/13/13) Medical History (Updated 07/19/24 @ 09:17 by RUBEN Carpenter) Vaginal pessary in situ 03/08/22. 76mm Ring with support. Patient is able to remove it and replace it herself. 04/2023. removed after 5mo 2/2 worsening incontinence with pessary in place. Family history of malignant hyperthermia Per pt. states it is nephew (sisters son) History of postoperative nausea and vomiting Surgical History (Updated 05/27/24 @ 08:23 by Codi Khanna) History of colonoscopy (~05/2024) Hx of shoulder surgery right History of right mastoidectomy Pt reports at Age 1, [facility] [place] Ligation of fallopian tube 1998 Cautery of R neck nerves 2012 x 2 procedures Family History Sister Manda-Danlos syndrome Sister Manda-Danlos syndrome Mother Hyperlipidemia Sister Manda-Danlos syndrome Other Diabetes Personal history of malignant neoplasm Social History Smoking/Tobacco Use Status: Former Tobacco Use Quit Date: 10/16/94 Smoking risk assessment performed?: Yes Alcohol Intake: current Alcohol Intake frequency: 0-2 drinks per day Alcohol type: wine Drug use: Never Substance use type: does not use Housing: house Current gender identity: female Do you feel safe at home: Yes Do you feel safe in your relationship?: Yes History History 4 Para 2 Hx # Term Pregnancies Multiple births Hx # Pregnancies Ectopic pregnancies AB induced Hx Number of Living Children AB spontaneous PAWSS Have you Been Recently Intoxicated or Drunk Within the Last 30 days?: No Have you Ever Experienced Previous Episodes of Alcohol Withdrawal?: No Have you ever Experienced Withdrawal Seizures?: No Have you ever Experienced Delirium Tremens(DT)s?: No Have you ever undergone Alcohol Rehabilitation Treatment (i.e, inpt ot outpatient treatment programs)?: No Have you ever Experienced Blackouts?: No Have you ever Combined Alcohol with other Downers within the last 90 days?: No Have you ever Combined Alcohol with any other Substance of Abuse during the last 90 days?: No Positive Blood Alcohol level on Presentation? [PCS.BAL]: No Evidence of Increased Autonomic Activity (i.e. HR>120, tremor, sweating, agitation, nausea)?: No Result: 0
--- NOTE | 2024-07-19 09:05 | DI.RAD_ITS ---
Exam(s) XR FOREARM RT EXAM: XR FOREARM RT CLINICAL HISTORY: laceration mid-shaft, pain. TECHNIQUE: 2D digital imaging was performed. Two views. COMPARISON: No exams were available for comparison FINDINGS: BONES: No acute fracture is present. No bony destructive lesion is seen. Visualized portion of elbow and wrist joints are unremarkable. SOFT TISSUE: Small amount of soft tissue air visible dorsally in the mid forearm. No foreign body. IMPRESSION: Soft tissue laceration. DATA REPOSITORY: RADIATION DOSE DELIVERED:
== END 2024-07-19 09:36 | disposition home or self-care (01) ==
LOC: ER 09:31
PROVIDERS: Emergency Provider Physician Assistant; PCP Internal Medicine
DX: S51.811A Laceration without foreign body of right forearm, initial encounter (principal); W10.9XXA Fall (on) (from) unspecified stairs and steps, initial encounter
CPT/HCPCS: 99283; 73090

== ENCOUNTER 2024-07-29 01:20 | Outpatient (CLI) | payer BC, SELFPAY ==
--- NOTE | 2024-07-29 08:00 | DI.MAMMO_ITS ---
Exam(s) MAMMO SCREENING EXAM: MAMMO SCREENING CLINICAL HISTORY: screening Z12.39 TECHNIQUE: Bilateral full field digital CC and MLO mammographic images were obtained with 3D tomosyn thesis and utilizing computer aided detection (CAD). COMPARISON: Available for comparison. FINDINGS: Masses/Architectural Distortion: None seen. Microcalcifications: No suspicious pleomorphic-type are seen. Skin Thickening/Nipple Retraction: None. IMPRESSION: 1. No significant interval change with no specific features of malignancy noted. 2. Unless there is more urgent need, screening mammography is recommended, as per [employer] guidelines. BI-RADS Category 1 - Negative Breast Density - Category C - Heterogeneously dense Breast density category C or D implies that the patient has dense breast tissue. Dense breast tissue is very common and is not abnormal but dense breast tissue can make it harder to find cancer on a ma mmogram. Also, dense breast tissue may increase their breast cancer risk. This information about the result of the mammogram report was provided to the patient to raise their awareness. Use this report when you speak with the patient about their risks for breast cancer, which includes their family hist ory. At that time, you may recommend for more screening tests (Ultrasound or MRI) as they might be us eful based on their risk. A negative radiographic report should not delay biopsy if a dominant or clinically suspicious mass is present. Up to ten percent of cancers are not identified on mammography. A negative report may reinforce clinical impression. Adenosis and dense breasts may obscure an underlying neoplasm. False positive reports average 6 to 10%. Patient will receive a letter notifying them of these results.
== END 2024-07-29 01:40 ==
LOC: DI 01:20
PROVIDERS: PCP Internal Medicine; Visit Provider Obstetrics & Gynecology Gynecology
DX: Z12.31 Encounter for screening mammogram for malignant neoplasm of breast (principal)
CPT/HCPCS: 77063; 77067

== ENCOUNTER 2024-08-29 15:48 | Outpatient (REF) | payer BC, SELFPAY ==
--- NOTE | 2024-08-29 13:45 | PAPFT_PTH ---
PATIENT: Lauren Mcgraw LOC: [facility] U#:[id number] AGE/SX: 59/F ROOM: RE08/29/[address]: Vannessa Stevens : 1965 BED: DIS: 08/29/2024 SPEC #: [id number] RECD: 08/30/24 13:39 STATUS: COCO REQ #: [id number] ELIESER: 08/29/24 13:[address]: Vannessa Stevens DEPT: [facility] Cytology RECD BY: Patricia Montaño ENTERED: 08/30/24 13:40 SP TYPE: PAPFT OTHR DR: Derek Lilly Tissues: 1 - CX/ENDOCX FOR PAP SMEARS Procedures: PAP THIN PREP/U[facility] Screening HPV DNA PROBE Comments: [id number] (HPV 16 & 18/45)
== END 2024-08-29 15:49 | disposition home or self-care (01) ==
LOC: LBN 15:48
PROVIDERS: PCP Internal Medicine; Visit Provider Obstetrics & Gynecology Gynecology
DX: Z01.419 Encounter for gynecological examination (general) (routine) without abnormal findings (principal); Z79.890 Hormone replacement therapy; N95.1 Menopausal and female climacteric states
CPT/HCPCS: 88142; 87624

== ENCOUNTER 2025-07-31 05:43 | Outpatient (CLI) | payer BC, SELFPAY ==
--- NOTE | 2025-07-31 | DI.MAMMO_ITS ---
Exam(s) MAMMO SCREENING EXAM: MAMMO SCREENING CLINICAL HISTORY: Z12.31 Screening TECHNIQUE: Mammograms were interpreted according to the usual protocol including computer analysis with CAD system, tomosynthesis and C-view imaging. COMPARISON: 2015 through 2023 FINDINGS: The breasts are composed of scattered fibroglandular densities, Breast Density category B. No suspicious masses or suspicious microcalcifications are seen. No skin thickening or abnormal axillary lymph nodes are seen. There has been no significant change from prior exams. IMPRESSION: BI-RADS Category 1, Negative mammogram Yearly screening mammography is recommended. Breast Density - Category B - There are scattered areas of fibroglandular density. Breast density Category C or D implies that the patient has dense breast tissue. Dense breast tissue can make it harder to find cancer on a mammogram. Dense breast tissue is also associated with an increased risk of breast cancer. This information about the result of the mammogram report was provided to the patient to raise their awareness. Use this report when you speak with the patient about their risks for breast cancer, which includes their family history. At that time, you may recommend additional screening tests (Ultrasound or MRI) as these tests may add significant information. A negative radiographic report should not delay biopsy if a dominant or clinically suspicious mass is present. Up to ten percent of cancers are not identified on mammography. A negative report may reinforce clinical impression. Adenosis and dense breasts may obscure an underlying neoplasm. False positive reports average 6 to 10%. Patient will receive a letter notifying them of these results.
== END 2025-07-31 06:03 ==
PROVIDERS: PCP Internal Medicine; Visit Provider Family Medicine
DX: Z12.31 Encounter for screening mammogram for malignant neoplasm of breast (principal); R92.323 Mammographic fibroglandular density, bilateral breasts
CPT/HCPCS: 77063; 77067